=== PATIENT | female | born 1955 | race Caucasian/White ===

== ENCOUNTER 2022-07-03 11:28 | Outpatient (REF) | payer MEDICARE, SELFPAY ==
--- NOTE | ~2022-07-03 | XR_ITS ---
EXAMINATION: XR THORACIC SPINE CLINICAL INFORMATION: Reason for Exam R07.9 - Chest pain, unspecified COMPARISON: None TECHNIQUE: 3 views of the thoracic spine FINDINGS: Vertebral body heights are maintained. Alignment is maintained. Moderate multilevel degenerative disc disease with loss of disc space height. Paravertebral soft tissues are unremarkable. XR/XR thoracic spine 2V IMPRESSION: Moderate multilevel degenerative disc disease with loss of disc space height.
[2022-07-03 14:02] LABS: MANUAL DIFF FLAG NO
[2022-07-03 14:11] LABS: Basophils Absolute Auto 0.1 X10*3/uL (0.0-0.2); Basophils Percent Auto 0.8 % (0-2); Eosinophils Absolute Auto 0.3 X10*3/uL (0.0-0.4); Eosinophils Percent Auto 3.3 % (0-4); Hematocrit 42.5 % (37.0-47.0); Imm Gran Abs Auto 0.07 X10*3/uL (0.00-0.03); Imm Gran Pct Auto 0.8 % (0.0-0.4); Lymphocytes Absolute Auto 2.3 X10*3/uL (1.2-4.9); Lymphocytes Percent Auto 26.2 % (20-40); Mean Corpuscular HGB Conc 32.9 g/dl (31.0-35.0); Mean Corpuscular Hemoglobin 30.8 pg (27.0-33.0); Mean Corpuscular Volume 93.6 fL (80.0-98.0); Mean Platelet Volume 10.7 fL (9.4-12.3); Monocytes Absolute Auto 0.7 X10*3/uL (0.1-1.2); Monocytes Percent Auto 7.5 % (2-11); Neutrophils Absolute Auto 5.4 x10*3/uL (2.0-8.3); Neutrophils Percent Auto 61.4 % (45-73); Platelet Count 321 X10*3/uL (160-400); Red Blood Count 4.54 X10*6/uL (4.20-5.50); Red Cell Distribution Width 12.4 % (11.0-16.0); White Blood Count 8.8 X10*3/uL (4.8-10.8)
[2022-07-03 14:21] LABS: Estimated Average Glucose 174 mg/dL; Hemoglobin A1c % 7.7 %
[2022-07-03 15:34] LABS: Alanine Aminotransferase 22 U/L (0-31); Albumin Level 4.4 g/dL (3.5-5.0); Alkaline Phosphatase 69 U/L (39-117); Anion Gap 14 (12-20); Aspartate Amino Transferase 19 U/L (5-31); Bilirubin Total 0.7 mg/dL (0.0-1.0); Blood Urea Nitrogen 11 mg/dL (9-16); Calcium 9.4 mg/dL (8.4-10.2); Carbon Dioxide 29 mmol/L (22-29); Chloride 100 mmol/L (96-108); Cholesterol 279 mg/dL; Estimated Glomerular Filt Rate > 60; Glucose Fasting 153 mg/dL (60-99); HDL Cholesterol 71 mg/dL; LDL Cholesterol Calculated 188 mg/dl; Sodium 138 mmol/L (135-145); Total Protein 7.4 g/dL (6.5-8.0); Triglycerides 101 mg/dL
[2022-07-03 15:39] LABS: TSH reflex Free T4 2.75 uIU/mL (0.32-4.0)
== END 2022-07-03 11:29 | disposition home or self-care (01) ==
LOC: HO.HMGCX 11:28
PROVIDERS: PCP Internal Medicine; Visit Provider Internal Medicine
DX: Z00.01 Encounter for general adult medical examination with abnormal findings (principal); R03.0 Elevated blood-pressure reading, without diagnosis of hypertension; R73.01 Impaired fasting glucose; E78.9 Disorder of lipoprotein metabolism, unspecified; R07.9 Chest pain, unspecified; E66.9 Obesity, unspecified
CPT/HCPCS: 36415; 72070; 80053; 80061; 83036; 84443; 85025

== ENCOUNTER 2022-10-14 06:19 | Outpatient (REF) | payer MEDICARE, SELFPAY ==
[2022-10-14 12:20] LABS: Alanine Aminotransferase 14 U/L (0-31); Albumin Level 4.2 g/dL (3.5-5.0); Alkaline Phosphatase 58 U/L (39-117); Anion Gap 15 (12-20); Aspartate Amino Transferase 16 U/L (5-31); Bilirubin Total 0.6 mg/dL (0.0-1.0); Blood Urea Nitrogen 12 mg/dL (9-16); Calcium 9.6 mg/dL (8.4-10.2); Carbon Dioxide 26 mmol/L (22-29); Chloride 103 mmol/L (96-108); Cholesterol 262 mg/dL; Estimated Glomerular Filt Rate > 60; Glucose Fasting 140 mg/dL (60-99); HDL Cholesterol 63 mg/dL; LDL Cholesterol Calculated 176 mg/dl; Potassium 4.3 mmol/L (3.3-5.1); Sodium 140 mmol/L (135-145); Total Protein 7.4 g/dL (6.5-8.0); Triglycerides 116 mg/dL
[2022-10-14 16:17] LABS: Estimated Average Glucose 131 mg/dL; Hemoglobin A1c % 6.2 %
== END 2022-10-14 06:20 | disposition home or self-care (01) ==
LOC: HO.HMGCLDS 06:19
PROVIDERS: PCP Internal Medicine; Visit Provider Internal Medicine
DX: R07.9 Chest pain, unspecified (principal); E11.9 Type 2 diabetes mellitus without complications; E66.09 Other obesity due to excess calories; E78.9 Disorder of lipoprotein metabolism, unspecified; R03.0 Elevated blood-pressure reading, without diagnosis of hypertension
CPT/HCPCS: 36415; 80053; 80061; 83036

== ENCOUNTER 2022-10-18 07:55 | Outpatient (AMB) | payer MEDICARE, SELFPAY ==
--- NOTE | 2022-10-18 07:57 | MHC.PC.OV ---
Vital Signs 10/18/22 07:58 Height 5 ft 2 in Weight 176 lb 6 oz BMI 32.3 BP 130/80 Blood Pressure Location Rt brachial Position Sitting Pulse 78 Pulse Source Pulse Oximeter Pulse Oximetry (%) 98 Oxygen Delivery Method Room Air Intake Visit Reasons: 3 month Follow up Allergies No Known Allergies Allergy (Verified 10/18/22 07:59) Medication List - Last Reconciled 10/18/22 by Radha Aceves MD No Known Home Meds Tobacco use date assessed: 07/05/22 HPI 3 month Follow up HPI Details Patient is 67-year-old female came in today for a follow-up appointment Patient is diabetic she has modified her diet her hemoglobin A1c has reduced to 6.2 Her blood pressure is 1 30 x 80 today And LDL has improved slightly to 176 Patient is reluctant to take any medications she will continue to exercise and continue modified diet. Follow-up 4 months labs to be done before visit. [facility] Medical History Impaired fasting blood sugar Lipid disorder Pre-hypertension Surgical History History of tonsillectomy Hx of lumpectomy (01/2012) Hx of tubal ligation (1982) Social History Housing: House Patient Tobacco Use Status: Former Tobacco user e-Cigarette/Vaping Use: Never Used Current occupational status: employed Cognitive needs: No Hearing needs: No Vision needs: Yes Questionnaire Thrive Questionnaire Date Thrive assessed: 07/03/22 CHAYO-7 AMB Questionnaire CHAYO-7 Date CHAYO - 7 assessed: 07/03/22 Source: Developed by Drs. Rogelio Orellana, Dulce Christie, Juan Mccullough and colleagues, with an educational shaji from [employer]. Review of Systems Const Denies chills and Denies fever(s) ENT Denies epistaxis and Denies nasal discharge Card Denies chest pain Resp Denies chest congestion, Denies cough and Denies hemoptysis GI Denies diarrhea and Denies nausea Skin/Breast Denies rash Neuro Reports no additional complaints Psych Reports no additional complaints Endo Reports no additional complaints Physical exam (Primary Care) Vital Signs: Last Vital Signs Pulse 78 10/18/22 07:58 BP 130/80 10/18/22 07:58 Pulse Ox 98 10/18/22 07:58 Oxygen Delivery Method Room Air 10/18/22 07:58 BMI result Body Mass Index 32.3 Tobacco/Smoking Status: Tobacco use Status Tobacco use date assessed 07/05/22 10/18/22 08:02 Patient Tobacco Use Status Former Tobacco user 10/18/22 08:02 e-Cigarette/Vaping Use Never Used 10/18/22 08:02 Thrive Assessment: Date of Thrive Assessment Date Thrive assessed 07/03/22 10/18/22 08:02 Const General: cooperative, comfortable and no acute distress Orientation/consciousness: patient oriented x3 HENMT Head: Yes normocephalic Eyes General: appearance normal, both eyes and all related structures Neck Neck: Yes supple Resp Effort & Inspection: normal respiratory effort, no cough and no stridor Cardio Rhythm: regular rhythm Heart sounds: S1 normal heart sound present and S2 normal heart sound present Skin General skin exam: turgor normal Neuro General: patient oriented x3, tone normal and moves all extremities Extrem Right lower extremity: no edema Left lower extremity: no edema Assessment and Plan Assessment & Plan (1) Type 2 diabetes mellitus: Code(s): E11.9 - Type 2 diabetes mellitus without complications (2) Lipid disorder: Code(s): E78.9 - Disorder of lipoprotein metabolism, unspecified (3) Pre-hypertension: Code(s): R03.0 - Elevated blood-pressure reading, without diagnosis of hypertension (4) Obesity due to excess calories: Code(s): E66.09 - Other obesity due to excess calories Plan Patient is 67-year-old female came in today for a follow-up appointment Patient is diabetic she has modified her diet her hemoglobin A1c has reduced to 6.2 Her blood pressure is 1 30 x 80 today And LDL has improved slightly to 176 Patient is reluctant to take any medications she will continue to exercise and continue modified diet. Follow-up 4 months labs to be done before visit. Orders: Orders Comprehensive [place]. Panel Fast 3 Months E11.9 - Type 2 diabetes mellitus without complications, E66.09 - Other obesity due to excess calories, E78.9 - Disorder of lipoprotein metabolism, unspecified, R03.0 - Elevated blood-pressure reading, without diagnosis of hypertension Hemoglobin A1c 3 Months E11.9 - Type 2 diabetes mellitus without complications, E66.09 - Other obesity due to excess calories, E78.9 - Disorder of lipoprotein metabolism, unspecified, R03.0 - Elevated blood-pressure reading, without diagnosis of hypertension Lipid Panel 3 Months E11.9 - Type 2 diabetes mellitus without complications, E66.09 - Other obesity due to excess calories, E78.9 - Disorder of lipoprotein metabolism, unspecified, R03.0 - Elevated blood-pressure reading, without diagnosis of hypertension Coding Level of Care Code Est Pt Level 3 (67502) Diagnoses Type 2 diabetes mellitus E11.9 Lipid disorder E78.9 Pre-hypertension R03.0 Obesity due to excess calories E66.09
[2022-10-18 07:58] VITALS: BP 130/80; PULSE 78; O2SAT 98; BMI 32.3
== END 2022-10-18 08:12 | disposition home or self-care (01) ==
PROVIDERS: Visit Provider Internal Medicine
DX: E11.9 Type 2 diabetes mellitus without complications (principal); E78.9 Disorder of lipoprotein metabolism, unspecified; R03.0 Elevated blood-pressure reading, without diagnosis of hypertension; Z68.32 Body mass index [BMI] 32.0-32.9, adult; E66.09 Other obesity due to excess calories
CPT/HCPCS: 99213

== ENCOUNTER 2023-02-14 06:05 | Outpatient (REF) | payer MEDICARE, SELFPAY ==
[2023-02-14 11:47] LABS: Estimated Average Glucose 134 mg/dL; Hemoglobin A1c % 6.3 % (<6.0)
[2023-02-14 12:08] LABS: Alanine Aminotransferase 15 U/L (0-31); Albumin Level 4.1 g/dL (3.5-5.0); Alkaline Phosphatase 53 U/L (39-117); Anion Gap 10 (12-20); Aspartate Amino Transferase 19 U/L (5-31); Bilirubin Total 0.5 mg/dL (0.0-1.0); Blood Urea Nitrogen 14 mg/dL (9-16); Calcium 9.3 mg/dL (8.4-10.2); Carbon Dioxide 30 mmol/L (22-29); Chloride 103 mmol/L (96-108); Cholesterol 244 mg/dL (<200); Estimated Glomerular Filt Rate > 60; Glucose Fasting 139 mg/dL (60-99); HDL Cholesterol 66 mg/dL (>40); LDL Cholesterol Calculated 165 mg/dL (<100); Potassium 5.2 mmol/L (3.3-5.1); Sodium 138 mmol/L (135-145); Total Protein 7.2 g/dL (6.5-8.0); Triglycerides 68 mg/dL (<150)
== END 2023-02-14 06:06 | disposition home or self-care (01) ==
LOC: HO.HMGCLDS 06:05
PROVIDERS: PCP Internal Medicine; Visit Provider Internal Medicine
DX: E11.9 Type 2 diabetes mellitus without complications (principal); E78.9 Disorder of lipoprotein metabolism, unspecified; R03.0 Elevated blood-pressure reading, without diagnosis of hypertension; E66.09 Other obesity due to excess calories
CPT/HCPCS: 36415; 80053; 80061; 83036

== ENCOUNTER 2023-02-19 08:35 | Outpatient (AMB) | payer MEDICARE, SELFPAY ==
[2023-02-19 08:37] VITALS: BP 136/82; PULSE 72; O2SAT 96; BMI 30.4
--- NOTE | 2023-02-19 08:37 | A.OFFPC_ITS ---
Vital Signs 02/19/23 08:37 Height 5 ft 2 in Weight 166 lb 6 oz BMI 30.4 BP 136/82 Blood Pressure Location Lt brachial Position Sitting Pulse 72 Pulse Source Pulse Oximeter Pulse Oximetry (%) 96 Oxygen Delivery Method Room Air Intake Visit Reasons: 4 month Follow up Allergies No Known Allergies Allergy (Verified 02/19/23 08:41) Medication List - Last Reconciled 02/19/23 by Radha Aceves MD No Known Home Meds Tobacco use date assessed: 02/19/23 Fall risk assessment: No Falls in past year Last assessed Fall Risk: 02/19/23 Dental Screening Dental Screen Date: 02/19/23 Did you have a dental visit in the last 12 months?: No Did you have a dental problem in the last 6 months where you did not have access to dental care?: No Was dental information given to patient?: No HPI 4 month Follow up HPI Details Patient is 67-year-old female came in today for her follow-up Patient was last seen October of this year She is taking no medication and do not want to take any medication Lipid disorder: Her LDL is 165 labs were done recently this month, it has improved from before Patient is working out every morning she is feeling good have lot of energy Offer no new complaints Prediabetes: Hemoglobin A1c is 6.3 which has worsened slightly from before Her potassium is 5.2 I would recommend to push lots of fluids and avoid potassium rich food for few days. Patient will return in June for physical exam, she will do labs before visit. BMI is still elevated at 30.4 patient is working on that. [facility] Medical History Lipid disorder Impaired fasting blood sugar Pre-hypertension Surgical History History of tonsillectomy Hx of tubal ligation (1982) Hx of lumpectomy (01/2012) Social History Housing: House Patient Tobacco Use Status: Former Tobacco user e-Cigarette/Vaping Use: Never Used Current occupational status: employed Cognitive needs: No Hearing needs: No Vision needs: Yes Questionnaire PHQ-9 Over the last 2 weeks, how often have you been bothered by any of the following problems? 1. Little interest or pleasure in doing things: not at all 2. Feeling down, depressed, or hopeless: not at all 3. Trouble falling or staying asleep, or sleeping too much: not at all 4. Feeling tired or having little energy: not at all 5. Poor appetite or overeating: not at all 6. Feeling bad about yourself - or that you are a failure or have let yourself or your family down: not at all 7. Trouble concentrating on things, such as reading the newspaper or watching television: not at all 8. Moving or speaking so slowly that other people could have noticed. Or the opposite - being so fidgety or restless that you have been moving around a lot more than usual: not at all 9. Thoughts that you would be better off or of hurting yourself in some w ay: not at all Total score: 0 Depression Screening Interpretation: Negative Depression Screening Done: Yes 68268 - PHQ-9 Billing: Yes Source: Developed by Drs. Rogelio Orellana, Juan Franks and colleagues, with an educational shaji from [employer]. Thrive Questionnaire Date Thrive assessed: 07/03/22 AUDIT C Alcohol Use Questionnaire (AUDIT-C) 1. How often do you have a drink containing alcohol?: Monthly or less 2. How many drinks containing alcohol do you have on a typical day when you are drinking?: 1 or 2 3. How often do you have six or more drinks on one occasion?: Never Total Score: 1 Score Reviewed/Action Taken: Yes CHAYO-7 AMB Questionnaire CHAYO-7 Date CHAYO - 7 assessed: 07/03/22 Source: Developed by Drs. Rogelio Orellana, Juan Franks and colleagues, with an educational shaji from [employer]. Review of Systems Const Denies chills and Denies fever(s) ENT Denies epistaxis and Denies nasal discharge Card Denies chest pain Resp Denies chest congestion, Denies cough and Denies hemoptysis GI Denies diarrhea and Denies nausea Skin/Breast Denies rash Neuro Reports no additional complaints Psych Reports no additional complaints Endo Reports no additional complaints Physical exam (Primary Care) Vital Signs: Last Vital Signs Pulse 72 02/19/23 08:37 BP 136/82 02/19/23 08:37 Pulse Ox 96 02/19/23 08:37 Oxygen Delivery Method Room Air 02/19/23 08:37 BMI result Body Mass Index 30.4 Tobacco/Smoking Status: Tobacco use Status Tobacco use date assessed 02/19/23 02/19/23 08:42 Patient Tobacco Use Status Former Tobacco user 02/19/23 08:39 e-Cigarette/Vaping Use Never Used 02/19/23 08:39 PHQ-9: PHQ-9 Score PHQ-9: Total score 0 02/19/23 08:52 Depression Screening Interpretation: Negative Thrive Assessment: Date of Thrive Assessment Date Thrive assessed 07/03/22 02/19/23 08:39 Const General: cooperative, comfortable and no acute distress Orientation/consciousness: patient oriented x3 HENMT Head: Yes normocephalic Eyes General: appearance normal, both eyes and all related structures Neck Neck: Yes supple Resp Effort & Inspection: normal respiratory effort, no cough and no stridor Cardio Rhythm: regular rhythm Heart sounds: S1 normal heart sound present and S2 normal heart sound present Skin General skin exam: turgor normal Neuro General: patient oriented x3, tone normal and moves all extremities Extrem Right lower extremity: no edema Left lower extremity: no edema Assessment and Plan Assessment & Plan (1) Diabetes mellitus type 2 in obese: Code(s): E11.69 - Type 2 diabetes mellitus with other specified complication; E66.9 - Obesity, unspecified (2) Lipid disorder: Code(s): E78.9 - Disorder of lipoprotein metabolism, unspecified (3) Hyperkalemia: Code(s): E87.5 - Hyperkalemia (4) Obesity due to excess calories: Code(s): E66.09 - Other obesity due to excess calories Qualifiers: Obesity classification: adult class 1 (BMI 30 - 34.9) Serious obesity comorbidity presence: with serious comorbidity Body mass index: BMI 30.0-30.9 Qualified Code(s): E66.09 - Other obesity due to excess calories; Z68.30 - Body mass index [BMI] 30.0-30.9, adult Plan Patient is 67-year-old female came in today for her follow-up Patient was last seen October of this year She is taking no medication and do not want to take any medication Lipid disorder: Her LDL is 165 labs were done recently this month, it has improved from before Patient is working out every morning she is feeling good have lot of energy Offer no new complaints Prediabetes: Hemoglobin A1c is 6.3 which has worsened slightly from before Her potassium is 5.2 I would recommend to push lots of fluids and avoid potassium rich food for few days. Patient will return in June for physical exam, she will do labs before visit. BMI is still elevated at 30.4 patient is working on that. Orders: Orders Hemoglobin A1c 3 Months - Type 2 diabetes mellitus with other specified complication, E66.09 - Other obesity due to excess calories, E66.9 - Obesity, unspecified, E78.9 - Disorder of lipoprotein metabolism, unspecified, E87.5 - Hyperkalemia Lipid Panel 3 Months . - Type 2 diabetes mellitus with other specified complication, E66.09 - Other obesity due to excess calories, E66.9 - Obesity, unspecified, E78.9 - Disorder of lipoprotein metabolism, unspecified, E87.5 - Hyperkalemia Comprehensive [place]. Panel Fast 3 Months . - Type 2 diabetes mellitus with other specified complication, E66.09 - Other obesity due to excess calories, E66.9 - Obesity, unspecified, E78.9 - Disorder of lipoprotein metabolism, unspecified, E87.5 - Hyperkalemia Coding Level of Care Code Est Pt Level 4 (34231) Diagnoses Diabetes mellitus type 2 in obese .69; E66.9 Lipid disorder E78.9 Hyperkalemia E87.5 Class 1 obesity due to excess calories with serious comorbidity and body mass index (BMI) of 30.0 to 30.9 in adult E66.09; Z68.30 Obesity classification: adult class 1 (BMI 30 - 34.9) Serious obesity comorbidity presence: with serious comorbidity Body mass index: BMI 30.0-30.9
== END 2023-02-19 08:59 | disposition home or self-care (01) ==
PROVIDERS: PCP Internal Medicine; Visit Provider Internal Medicine
DX: E11.69 Type 2 diabetes mellitus with other specified complication (principal); E66.9 Obesity, unspecified; E78.9 Disorder of lipoprotein metabolism, unspecified; E87.5 Hyperkalemia; E66.09 Other obesity due to excess calories; Z68.30 Body mass index [BMI] 30.0-30.9, adult
CPT/HCPCS: 99214

== ENCOUNTER 2023-05-27 12:41 | Outpatient (AMB) | payer MEDICARE, SELFPAY ==
[2023-05-27 12:43] VITALS: BP 124/78; PULSE 72; O2SAT 99; BMI 29.1
--- NOTE | 2023-05-27 12:43 | MHC.PC.OV ---
Vital Signs 05/27/23 12:43 Height 5 ft 2 in Weight 159 lb BMI 29.1 BP 124/78 Blood Pressure Location Lt brachial Position Sitting Pulse 72 Pulse Source Pulse Oximeter Pulse Oximetry (%) 99 Oxygen Delivery Method Room Air Intake Visit Reasons: Dizzy spells Intake Note: Pt is here today for sick visit. Pt c/o dizzy spells that happened a month ago and 2 weeks ago again. Allergies No Known Allergies Allergy (Verified 05/27/23 12:46) Medication List - Last Reconciled 05/27/23 by Radha Aceves MD No Known Home Meds Tobacco use date assessed: 05/27/23 Fall risk assessment: No Falls in past year Last assessed Fall Risk: 05/27/23 Dental Screening Dental Screen Date: 05/27/23 Did you have a dental visit in the last 12 months?: No Did you have a dental problem in the last 6 months where you did not have access to dental care?: Yes Was dental information given to patient?: Yes HPI Dizzy spells HPI Details Patient is 67-year-old female came in today to be evaluated for dizziness Patient says that twice in 1 month she had dizzy spell Once she was working in the kitchen she was holding something she turned around and felt dizzy, she sat down for 15 minutes and then she was fine You were no neurological symptoms associated 2nd time 2 weeks ago she was working in a kitchen doing a lot of things moving quickly, and felt dizzy again Patient lay down for few minutes and then she was fine There was no nausea associated with it no headache no weakness in arms or legs no difficulty talking On examination no inflammation was noted in the ear right ear patient have a small papule which has been there for a while and is not getting bigger or painful Patient says that she has seen district representative for that in the past Her vertigo test is negative today There is no nystagmus However since it is a new symptom for the patient, she is extremely worried about it I am referring her to neurologist for further evaluation. Meanwhile patient is to get meclizine 25 mg [id number] and take that in the morning before going to work [facility] Medical History Lipid disorder Impaired fasting blood sugar Pre-hypertension Surgical History History of tonsillectomy Hx of tubal ligation (1982) Hx of lumpectomy (01/2012) Social History Housing: House Patient Tobacco Use Status: Former Tobacco user e-Cigarette/Vaping Use: Never Used Current occupational status: employed Cognitive needs: No Hearing needs: No Vision needs: Yes Questionnaire PHQ-9 Over the last 2 weeks, how often have you been bothered by any of the following problems? 1. Little interest or pleasure in doing things: not at all 2. Feeling down, depressed, or hopeless: not at all 3. Trouble falling or staying asleep, or sleeping too much: not at all 4. Feeling tired or having little energy: not at all 5. Poor appetite or overeating: not at all 6. Feeling bad about yourself - or that you are a failure or have let yourself or your family down: not at all 7. Trouble concentrating on things, such as reading the newspaper or watching television: not at all 8. Moving or speaking so slowly that other people could have noticed. Or the opposite - being so fidgety or restless that you have been moving around a lot more than usual: not at all 9. Thoughts that you would be better off or of hurting yourself in some way: not at all Total score: 0 Depression Screening Interpretation: Negative Depression Screening Done: Yes 22048 - PHQ-9 Billing: Yes Source: Developed by Drs. Rogelio Orellana, Dulce Christie, Juan Mccullough and colleagues, with an educational shaji from [employer]. Thrive Questionnaire Date Thrive assessed: 05/27/23 I am a: Patient What is your living situation today?: I have a steady place to live Within the past 12 months, did the food you bought not last and you didn't have the money to get more?: Never true Within the past 12 months, did you worry whether your food would run out before you got money to buy more?: Never true Do you have trouble paying for medicines?: No Do you have trouble getting transportation to medical appointments?: No Do you have trouble paying your heating and electricity bill?: No Do you have trouble taking care of your child, family member or friend?: No Do you have trouble with day-to-day activities such as bathing, preparing meals, shopping, managing finances, etc.?: No Are you currently unemployed and looking for a job?: No Are you interested in more education?: No Please select the resources that you would like help with: None Currently or been in a relationship where the following occur: no concerns reported THRIVE Score: 0 AUDIT C Alcohol Use Questionnaire (AUDIT-C) 1. How often do you have a drink containing alcohol?: Never 3. How often do you have six or more drinks on one occasion?: Never Total Score: 0 CHAYO-7 AMB Questionnaire CHAYO-7 Date CHAYO - 7 assessed: 05/27/23 Feeling nervous, anxious, or on edge: 0 = Not at all Not being able to stop or control worryin = Not at all Worrying too much about different things: 0 = Not at all Trouble relaxin = Not at all Being so restless that it is hard to sit still: 0 = Not at all Becoming easily annoyed or irritable: 0 = Not at all Feeling afraid as if something awful might happen: 0 = Not at all Total CHAYO-7 score (0-4 normal; 5-9 mild; 10-14 moderate; 15-21 severe): 0 Source: Developed by Drs. Rogelio Orellana, Dulce Christie, Juan Mccullough and colleagues, with an educational shaji from [employer]. CHAYO-7 Assessment Billing CHAYO-7 Assessment Tool: CHAYO-7 Assessment 24262 Review of Systems Const Denies chills and Denies fever(s) ENT Denies epistaxis and Denies nasal discharge Card Denies chest pain Resp Denies chest congestion, Denies cough and Denies hemoptysis GI Denies diarrhea and Denies nausea Skin/Breast Denies rash Neuro Reports no additional complaints Psych Reports no additional complaints Endo Reports no additional complaints Physical exam (Primary Care) Vital Signs: Last Vital Signs Pulse 72 05/27/23 12:43 BP 124/78 05/27/23 12:43 Pulse Ox 99 05/27/23 12:43 Oxygen Delivery Method Room Air 05/27/23 12:43 BMI result Body Mass Index 29.1 Tobacco/Smoking Status: Tobacco use Status Tobacco use date assessed 05/27/23 05/27/23 12:48 Patient Tobacco Use Status Former Tobacco user 05/27/23 12:48 e-Cigarette/Vaping Use Never Used 05/27/23 12:48 PHQ-9: PHQ-9 Score PHQ-9: Total score 0 05/27/23 12:48 Depression Screening Interpretation: Negative Thrive Assessment: Date of Thrive Assessment Date Thrive assessed 05/27/23 05/27/23 12:48 Currently or been in a relationship where the following occur: no concerns reported Const General: cooperative, comfortable and no acute distress Orientation/consciousness: patient oriented x3 HENWI Head: Yes normocephalic Eyes General: appearance normal, both eyes and all related structures Neck Neck: Yes supple Resp Effort & Inspection: normal respiratory effort, no cough and no stridor Cardio Rhythm: regular rhythm Heart sounds: S1 normal heart sound present and S2 normal heart sound present Skin General skin exam: turgor normal Neuro Other: Vertigo test negative General: patient oriented x3, tone normal and moves all extremities Extrem Right lower extremity: no edema Left lower extremity: no edema Assessment and Plan Assessment & Plan (1) Dizziness: Code(s): R42 - Dizziness and giddiness Plan Patient is 67-year-old female came in today to be evaluated for dizziness Patient says that twice in 1 month she had dizzy spell Once she was working in the kitchen she was holding something she turned around and felt dizzy, she sat down for 15 minutes and then she was fine You were no neurological symptoms associated 2nd time 2 weeks ago she was working in a kitchen doing a lot of things moving quickly, and felt dizzy again Patient lay down for few minutes and then she was fine There was no nausea associated with it no headache no weakness in arms or legs no difficulty talking On examination no inflammation was noted in the ear right ear patient have a small papule which has been there for a while and is not getting bigger or painful Patient says that she has seen district representative for that in the past Her vertigo test is negative today There is no nystagmus However since it is a new symptom for the patient, she is extremely worried about it I am referring her to neurologist for further evaluation. Meanwhile patient is to get meclizine 25 mg [id number] and take that in the morning before going to work Orders: Referrals Neurology Referral R42 - Dizziness and giddiness Coding Level of Care Code Est Pt Level 3 (75749) Diagnoses Dizziness R42 Additional Codes CHAYO-7 Assessment Billing - CHAYO-7 Assessment Tool: CHAYO-7 Assessment 60257 ([id number])
== END 2023-05-27 13:04 | disposition home or self-care (01) ==
LOC: HO.HMGC 12:42
PROVIDERS: PCP Internal Medicine; Visit Provider Internal Medicine
DX: R42 Dizziness and giddiness (principal)
CPT/HCPCS: 99213

== ENCOUNTER 2023-07-04 06:20 | Outpatient (REF) | payer MEDICARE, SELFPAY ==
[2023-07-04 11:08] LABS: Estimated Average Glucose 140 mg/dL; Hemoglobin A1c % 6.5 % (<6.0)
[2023-07-04 11:13] LABS: Alanine Aminotransferase 14 U/L (0-31); Alkaline Phosphatase 56 U/L (39-117); Anion Gap 10 (12-20); Aspartate Amino Transferase 16 U/L (5-31); Bilirubin Total 0.5 mg/dL (0.0-1.0); Blood Urea Nitrogen 17 mg/dL (9-16); Calcium 9.9 mg/dL (8.4-10.2); Carbon Dioxide 29 mmol/L (22-29); Chloride 105 mmol/L (96-108); Cholesterol 266 mg/dL (<200); Estimated Glomerular Filt Rate > 60; Glucose Fasting 154 mg/dL (60-99); HDL Cholesterol 72 mg/dL (>40); LDL Cholesterol Calculated 177 mg/dL (<100); Potassium 4.2 mmol/L (3.3-5.1); Sodium 140 mmol/L (135-145); Total Protein 7.1 g/dL (6.5-8.0); Triglycerides 86 mg/dL (<150)
== END 2023-07-04 06:21 | disposition home or self-care (01) ==
LOC: HO.HMGCLDS 06:20
PROVIDERS: PCP Internal Medicine; Visit Provider Internal Medicine
DX: E11.69 Type 2 diabetes mellitus with other specified complication (principal); E66.9 Obesity, unspecified; E78.9 Disorder of lipoprotein metabolism, unspecified; E87.5 Hyperkalemia; E66.09 Other obesity due to excess calories
CPT/HCPCS: 36415; 80053; 80061; 83036

== ENCOUNTER 2023-07-09 14:12 | Outpatient (AMB) | payer MEDICARE, SELFPAY ==
--- NOTE | 2023-07-09 14:12 | MHC.PC.OV ---
Vital Signs 07/09/23 14:13 Height 5 ft 2 in Weight 164 lb 6 oz BMI 30.1 BP 130/72 Blood Pressure Location Rt brachial Position Sitting Pulse 67 Pulse Source Pulse Oximeter Pulse Oximetry (%) 98 Oxygen Delivery Method Room Air Intake Visit Reasons: PE Allergies No Known Allergies Allergy (Verified 07/09/23 14:13) Medication List - Last Reconciled 07/09/23 by Radha Aceves MD No Known Home Meds Tobacco use date assessed: 07/09/23 Fall risk assessment: No Falls in past year Last assessed Fall Risk: 07/09/23 Dental Screening Dental Screen Date: 05/27/23 HPI PE HPI Details Patient have a history of breast cancer she is currently seeing a specialist for monitoring Mammogram is up-to-date. Colonoscopy will be in [address] Waldo LOPEZ she is seeing them every other year and is due to go this year Patient tells me that she has a history of scoliosis and sometimes she have a pain left side of her ribcage. 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 Vaccines through pharmacy Patient is prehypertensive, I would recommend no so to diet BMI is elevated however she was able to lose some weight, patient is exercising every morning Follow-up 4 months for hemoglobin A1c She does not want to take medication for high cholesterol, her LDL is 177 PFSH Medical History Lipid disorder Impaired fasting blood sugar Pre-hypertension Surgical History History of tonsillectomy Hx of tubal ligation (1982) Hx of lumpectomy (01/2012) Social History Housing: House Patient Tobacco Use Status: Former Tobacco user e-Cigarette/Vaping Use: Never Used Current occupational status: employed Cognitive needs: No Hearing needs: No Vision needs: Yes Questionnaire PHQ-9 Over the last 2 weeks, how often have you been bothered by any of the following problems? 1. Little interest or pleasure in doing things: not at all 2. Feeling down, depressed, or hopeless: not at all 3. Trouble falling or staying asleep, or sleeping too much: not at all 4. Feeling tired or having little energy: not at all 5. Poor appetite or overeating: not at all 6. Feeling bad about yourself - or that you are a failure or have let yourself or your family down: not at all 7. Trouble concentrating on things, such as reading the newspaper or watching television: not at all 8. Moving or speaking so slowly that other people could have noticed. Or the opposite - being so fidgety or restless that you have been moving around a lot more than usual: not at all 9. Thoughts that you would be better off or of hurting yourself in some way: not at all Total score: 0 Depression Screening Interpretation: Negative Depression Screening Done: Yes 90743 - PHQ-9 Billing: Yes Source: Developed by Drs. Rogelio Orellana, Dulce Christie, Juan Mccullough and colleagues, with an educational shaji from [employer]. Thrive Questionnaire Date Thrive assessed: 07/09/23 I am a: Patient What is your living situation today?: I have a steady place to live Within the past 12 months, did the food you bought not last and you didn't have the money to get more?: Never true Within the past 12 months, did you worry whether your food would run out before you got money to buy more?: Never true Do you have trouble paying for medicines?: No Do you have trouble getting transportation to medical appointments?: No Do you have trouble paying your heating and electricity bill?: No Do you have trouble taking care of your child, family member or friend?: No Do you have trouble with day-to-day activities such as bathing, preparing meals, shopping, managing finances, etc.?: No Are you currently unemployed and looking for a job?: No Are you interested in more education?: No Please select the resources that you would like help with: None Currently or been in a relationship where the following occur: no concerns reported THRIVE Score: 0 CHAYO-7 AMB Questionnaire CHAYO-7 Date CHAYO - 7 assessed: 07/09/23 Feeling nervous, anxious, or on edge: 0 = Not at all Not being able to stop or control worryin = Not at all Worrying too much about different things: 0 = Not at all Trouble relaxin = Not at all Being so restless that it is hard to sit still: 0 = Not at all Becoming easily annoyed or irritable: 0 = Not at all Feeling afraid as if something awful might happen: 0 = Not at all Total CHAYO-7 score (0-4 normal; 5-9 mild; 10-14 moderate; 15-21 severe): 0 Source: Developed by Drs. Rogelio Orellana, Dulce Christie, Juan Mccullough and colleagues, with an educational shaji from [employer]. CHAYO-7 Assessment Billing CHAYO-7 Assessment Tool: CHAYO-7 Assessment 81627 Review of Systems Const Denies chills, Denies fever(s) and Denies headache(s) Eyes Denies blurry vision ENT Denies headache(s), Denies nasal discharge, Denies nasal obstruction, Denies odynophagia and Denies sinus pain Card Denies chest pain at rest and Denies chest pain with activity Resp Denies cough and Denies hemoptysis GI Denies diarrhea, Denies odynophagia, Denies vomiting and Denies hematemesis Reports as per HPI Musc Denies abnormal gait Skin/Breast Reports as per HPI Neuro Denies Neuro-related abnormal movements, Denies Abnormal speech present, Denies abnormal gait, Denies headache(s) and Denies Sensory deficit (Neuro) Psych Denies mood swings and Denies paranoia Endo Reports as per HPI Vipul/Lymph Reports as per HPI Aller/Immun Reports as per HPI Physical exam (Primary Care) Vital Signs: Last Vital Signs Pulse 67 07/09/23 14:13 BP 130/72 07/09/23 14:13 Pulse Ox 98 07/09/23 14:13 Oxygen Delivery Method Room Air 07/09/23 14:13 BMI result Body Mass Index 30.1 Tobacco/Smoking Status: Tobacco use Status Tobacco use date assessed 07/09/23 07/09/23 14:15 Patient Tobacco Use Status Former Tobacco user 07/09/23 14:15 e-Cigarette/Vaping Use Never Used 07/09/23 14:15 PHQ-9: PHQ-9 Score PHQ-9: Total score 0 07/09/23 14:39 Depression Screening Interpretation: Negative Thrive Assessment: Date of Thrive Assessment Date Thrive assessed 07/09/23 07/09/23 14:40 Currently or been in a relationship where the following occur: no concerns reported Const General: cooperative, comfortable and no acute distress Orientation/consciousness: patient oriented x3 HENMT Head: Yes normocephalic and Yes atraumatic Eyes General: appearance normal, both eyes and all related structures Pupils: Equal, round and reactive pupils present EOM: EOMs intact bilaterally Neck Neck: Yes supple and No lymphadenopathy Thyroid: Thyroid normal Lymphatic: no lymphadenopathy noted Resp Effort & Inspection: normal respiratory effort and able to speak in complete sentences Auscultation: clear to auscultation bilaterally Cardio Heart sounds: S1 normal heart sound present and S2 normal heart sound present GI Palpation (GI): Soft to palpation and nontender Auscultation: normal bowel sounds General: Yes no CVA tenderness Back/Spine/Pelvis Back: no CVA tenderness Skin General skin exam: elasticity normal and turgor normal Neuro General: patient oriented x3 and gait normal Cranial nerves: Yes Equal, round and reactive pupils present Speech: No Abnormal speech present Sensory Exam: No Sensory deficit (Neuro) Coordination: tandem gait normal and Romberg test negative Extrem General: Yes normal exam except as noted and No edema Assessment and Plan Assessment & Plan (1) Encounter for general adult medical examination with abnormal findings: Code(s): Z00.01 - Encounter for general adult medical examination with abnormal findings (2) Lipid disorder: Code(s): E78.9 - Disorder of lipoprotein metabolism, unspecified (3) New onset type 2 diabetes mellitus: Code(s): E11.9 - Type 2 diabetes mellitus without complications (4) Obesity due to excess calories: Code(s): E66.09 - Other obesity due to excess calories Qualifiers: Body mass index: BMI 30.0-30.9 Obesity classification: adult class 1 (BMI 30 - 34.9) Serious obesity comorbidity presence: with serious comorbidity Qualified Code(s): E66.09 - Other obesity due to excess calories; Z68.30 - Body mass index [BMI] 30.0-30.9, adult Plan Patient have a history of breast cancer she is currently seeing a specialist for monitoring Mammogram is up-to-date. Colonoscopy will be in [address] Waldo LOPEZ she is seeing them every other year and is due to go this year Patient tells me that she has a history of scoliosis and sometimes she have a pain left side of her ribcage. 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 Vaccines through pharmacy Patient is prehypertensive, I would recommend no so to diet BMI is elevated however she was able to lose some weight, patient is exercising every morning Follow-up 4 months for hemoglobin A1c She does not want to take medication for high cholesterol, her LDL is 177 Coding Level of Care Code Est Pt Prev Care >65y(16534) Diagnoses Encounter for general adult medical examination with abnormal findings Z00.01 Lipid disorder E78.9 New onset type 2 diabetes mellitus E11.9 Class 1 obesity due to excess calories with serious comorbidity and body mass index (BMI) of 30.0 to 30.9 in adult E66.09; Z68.30 Body mass index: BMI 30.0-30.9 Obesity classification: adult class 1 (BMI 30 - 34.9) Serious obesity comorbidity presence: with serious comorbidity Additional Codes CHAYO-7 Assessment Billing - CHAYO-7 Assessment Tool: CHAYO-7 Assessment [id number] ([id number])
[2023-07-09 14:13] VITALS: BP 130/72; PULSE 67; O2SAT 98; BMI 30.1
== END 2023-07-09 14:40 | disposition home or self-care (01) ==
PROVIDERS: Visit Provider Internal Medicine
DX: Z00.00 Encounter for general adult medical examination without abnormal findings (principal); E11.9 Type 2 diabetes mellitus without complications; E66.09 Other obesity due to excess calories; Z68.30 Body mass index [BMI] 30.0-30.9, adult; E78.9 Disorder of lipoprotein metabolism, unspecified
CPT/HCPCS: 99397

== ENCOUNTER 2023-10-16 09:15 | Outpatient (REF) | payer MEDICARE, SELFPAY ==
--- NOTE | ~2023-10-16 | MR_ITS ---
EXAMINATION: MR BRAIN WITHOUT AND WITH CONTRAST CLINICAL INFORMATION: Partial seizure disorder, headache COMPARISON: None TECHNIQUE: Multiplanar multisequence MR imaging of the brain was obtained without and following the administration of 7.5 mL Gadavist intravenous contrast. FINDINGS: There is no acute infarct on diffusion-weighted imaging. There is no intracranial hemorrhage on iron-sensitive imaging. No extra-axial collection or mass effect/herniation. Scattered periventricular and deep white matter T2 FLAIR hyperintensities consistent with mild underlying microangiopathy. The hippocampi are symmetric in size, contour, and signal intensity, demonstrating no convincing imaging evidence of mesial temporal sclerosis. The temporal horns appear symmetric. No hydrocephalus. The ventricles are normal in morphology and size. No abnormal parenchymal or extra-axial enhancement. The major flow voids at the skull base are preserved. The midline structures are normal. The cerebellar tonsils are normally positioned. The craniocervical junction is normal. Marrow signal is within normal limits. The visualized soft tissues are without significant abnormality. No signal abnormality within the paranasal sinuses or within the mastoid air cells. Small left petrous apex fluid. MR/MR head/brain wo/w con IMPRESSION: Mild chronic white matter microangiopathy. Otherwise unremarkable contrast-enhanced MRI of the brain. Electronically signed by: Keenan Bhagat MD 11/12/2023 06:57 PM EDT
[2023-10-16] MEDS: gadobutroL 7.5 ML VIAL IVPUSH (11:16)
== END 2023-10-16 09:16 | disposition home or self-care (01) ==
LOC: HO.MRI 09:15
PROVIDERS: PCP Internal Medicine; Visit Provider Psychiatry & Neurology Neurology
DX: G40.109 Localization-related (focal) (partial) symptomatic epilepsy and epileptic syndromes with simple partial seizures, not intractable, without status epilepticus (principal)
CPT/HCPCS: 70553; A9585

== ENCOUNTER 2023-11-25 13:13 | Outpatient (AMB) | payer MEDICARE, SELFPAY ==
[2023-11-25 13:16] VITALS: BP 162/100; PULSE 57; O2SAT 100; BMI 30.7
--- NOTE | 2023-11-25 13:16 | A.OFFPC_ITS ---
Vital Signs 11/25/23 13:16 Height 5 ft 2 in Weight 168 lb BMI 30.7 BP 162/100 H Blood Pressure Location Rt brachial Position Sitting Pulse 57 Pulse Source Pulse Oximeter Pulse Oximetry (%) 100 Oxygen Delivery Method Room Air Intake Visit Reasons: 4 month follow up Allergies No Known Allergies Allergy (Verified 11/25/23 13:16) Medication List - Last Reconciled 11/25/23 by Radha Aceves MD No Known Home Meds Tobacco use date assessed: 11/25/23 Fall risk assessment: No Falls in past year Last assessed Fall Risk: 11/25/23 Dental Screening Dental Screen Date: 11/25/23 Did you have a dental visit in the last 12 months?: Yes Did you have a dental problem in the last 6 months where you did not have access to dental care?: No Was dental information given to patient?: Patient has dentist HPI 4 month follow up HPI Details Patient came in today for her regular follow-up She is diabetic and is due for hemoglobin A1c Last A1c was 6.5 Her blood pressure is elevated today we checked it twice with 10 minute gap in between and it is still 160 x 90 She has a blood pressure monitor at home she was start monitoring blood pressure and will bring the monitor next week to see nurse navigator Meanwhile I have sent losartan 25 mg patient is to start 1 tablet a day Also complaining of feeling bloated and weight gain I have ordered labs for the patient she will have it done today. Patient have elevated lipids but she does not want to take medication for that Return in 4 months or earlier if needed [facility] Medical History Lipid disorder Impaired fasting blood sugar Pre-hypertension Surgical History History of tonsillectomy Hx of tubal ligation (1982) Hx of lumpectomy (01/2012) Social History Housing: House Patient Tobacco Use Status: Former Tobacco user e-Cigarette/Vaping Use: Never Used Current occupational status: employed Cognitive needs: No Hearing needs: No Vision needs: Yes Questionnaire Thrive Questionnaire Date Thrive assessed: 07/09/23 AUDIT C Alcohol Use Questionnaire (AUDIT-C) 1. How often do you have a drink containing alcohol?: Never 3. How often do you have six or more drinks on one occasion?: Never Total Score: 0 Score Reviewed/Action Taken: Yes CHAYO-7 AMB Questionnaire CHAYO-7 Date CHAYO - 7 assessed: 07/09/23 Source: Developed by Drs. Rogelio Orellana, Dulce Christie, Juan Mccullough and colleagues, with an educational shaji from [employer]. Review of Systems Const Denies chills and Denies fever(s) ENT Denies epistaxis and Denies nasal discharge Card Denies chest pain Resp Denies chest congestion, Denies cough and Denies hemoptysis GI Denies diarrhea and Denies nausea Skin/Breast Denies rash Neuro Reports no additional complaints Psych Reports no additional complaints Endo Reports no additional complaints Physical exam (Primary Care) Vital Signs: Last Vital Signs Pulse 57 11/25/23 13:16 BP 162/100 H 11/25/23 13:16 Pulse Ox 100 11/25/23 13:16 Oxygen Delivery Method Room Air 11/25/23 13:16 BMI result Body Mass Index 30.7 Tobacco/Smoking Status: Tobacco use Status Tobacco use date assessed 11/25/23 11/25/23 13:18 Patient Tobacco Use Status Former Tobacco user 11/25/23 13:18 e-Cigarette/Vaping Use Never Used 11/25/23 13:18 Thrive Assessment: Date of Thrive Assessment Date Thrive assessed 07/09/23 11/25/23 13:18 Const General: cooperative, comfortable and no acute distress Orientation/consciousness: patient oriented x3 HENMT Head: Yes normocephalic Eyes General: appearance normal, both eyes and all related structures Neck Neck: Yes supple Resp Effort & Inspection: normal respiratory effort, no cough and no stridor Cardio Rhythm: regular rhythm Heart sounds: S1 normal heart sound present and S2 normal heart sound present Skin General skin exam: turgor normal Neuro General: patient oriented x3, tone normal and moves all extremities Extrem Right lower extremity: no edema Left lower extremity: no edema Assessment and Plan Assessment & Plan (1) Type 2 diabetes mellitus: Code(s): E11.9 - Type 2 diabetes mellitus without complications Qualifiers: Diabetes mellitus complication status: with other specified complication Diabetes mellitus penitentiary insulin use: without penitentiary use Qualified Code(s): E11.69 - Type 2 diabetes mellitus with other specified complication (2) Elevated blood pressure reading: Code(s): R03.0 - Elevated blood-pressure reading, without diagnosis of hypertension (3) Lipid disorder: Code(s): E78.9 - Disorder of lipoprotein metabolism, unspecified Plan Patient came in today for her regular follow-up She is diabetic and is due for hemoglobin A1c Last A1c was 6.5 Her blood pressure is elevated today we checked it twice with 10 minute gap in between and it is still 160 x 90 She has a blood pressure monitor at home she was start monitoring blood pressure and will bring the monitor next week to see nurse navigator Meanwhile I have sent losartan 25 mg patient is to start 1 tablet a day Also complaining of feeling bloated and weight gain I have ordered labs for the patient she will have it done today. Patient have elevated lipids but she does not want to take medication for that Return in 4 months or earlier if needed Orders: Orders Hemoglobin A1c Today E11.9 - Type 2 diabetes mellitus without complications, R03.0 - Elevated blood-pressure reading, without diagnosis of hypertension, R73.01 - Impaired fasting glucose TSH reflex Free T4 Today E11.9 - Type 2 diabetes mellitus without complications, R03.0 - Elevated blood-pressure reading, without diagnosis of hypertension, R73.01 - Impaired fasting glucose Microalbumin, Random (w Creat) Today E11.9 - Type 2 diabetes mellitus without complications, R03.0 - Elevated blood-pressure reading, without diagnosis of hypertension, R73.01 - Impaired fasting glucose Complete Blood Count Auto Diff Today E11.9 - Type 2 diabetes mellitus without complications, R03.0 - Elevated blood-pressure reading, without diagnosis of hypertension, R73.01 - Impaired fasting glucose Comprehensive Met. Panel Today E11.9 - Type 2 diabetes mellitus without complications, R03.0 - Elevated blood-pressure reading, without diagnosis of hypertension, R73.01 - Impaired fasting glucose LDL Cholesterol Direct Today E11.9 - Type 2 diabetes mellitus without complications, R03.0 - Elevated blood-pressure reading, without diagnosis of hy pertension, R73.01 - Impaired fasting glucose Medications: New losartan 25 mg PO DAILY 30 tabs 0RF Coding Level of Care Code Est Pt Level 4 (56994) Complex EM visit Add On G2211 Diagnoses Type 2 diabetes mellitus with other specified complication, without long-term current use of insulin E11.69 Diabetes mellitus complication status: with other specified complication Diabetes mellitus penitentiary insulin use: without dedicated intermodal truck driver use Elevated blood pressure reading R03.0 Lipid disorder E78.9
== END 2023-11-25 13:36 | disposition home or self-care (01) ==
PROVIDERS: PCP Internal Medicine; Referring Provider Internal Medicine; Visit Provider Internal Medicine
DX: E11.69 Type 2 diabetes mellitus with other specified complication (principal); R03.0 Elevated blood-pressure reading, without diagnosis of hypertension; E78.9 Disorder of lipoprotein metabolism, unspecified
CPT/HCPCS: 99214; G2211

== ENCOUNTER 2023-11-25 13:41 | Outpatient (REF) | payer MEDICARE, SELFPAY ==
[2023-11-25 16:12] LABS: MANUAL DIFF FLAG NO
[2023-11-25 16:18] LABS: Basophils Absolute Auto 0.1 X10*3/uL (0.0-0.2); Basophils Percent Auto 0.8 % (0-2); Eosinophils Absolute Auto 0.2 X10*3/uL (0.0-0.4); Eosinophils Percent Auto 2.2 % (0-4); Hematocrit 39.1 % (37.0-47.0); Hemoglobin 13.4 g/dl (12.0-16.0); Imm Gran Abs Auto 0.03 X10*3/uL (0.00-0.03); Imm Gran Pct Auto 0.4 % (0.0-0.4); Lymphocytes Absolute Auto 2.1 X10*3/uL (1.2-4.9); Lymphocytes Percent Auto 28.8 % (20-40); Mean Corpuscular HGB Conc 34.3 g/dl (31.0-35.0); Mean Corpuscular Hemoglobin 31.7 pg (27.0-33.0); Mean Corpuscular Volume 92.4 fL (80.0-98.0); Mean Platelet Volume 10.3 fL (9.4-12.3); Monocytes Absolute Auto 0.5 X10*3/uL (0.1-1.2); Monocytes Percent Auto 7.2 % (2-11); Neutrophils Absolute Auto 4.3 x10*3/uL (2.0-8.3); Neutrophils Percent Auto 60.6 % (45-73); Platelet Count 294 X10*3/uL (160-400); Red Blood Count 4.23 X10*6/uL (4.20-5.50); Red Cell Distribution Width 12.7 % (11.0-16.0); White Blood Count 7.2 X10*3/uL (4.8-10.8)
[2023-11-25 17:01] LABS: Creatinine Urine 11.48 mg/dL; Microalbumin Urine < 5.0 mg/L
[2023-11-25 17:07] LABS: Estimated Average Glucose 134 mg/dL; Hemoglobin A1c % 6.3 % (<6.0)
[2023-11-25 17:14] LABS: Alanine Aminotransferase 15 U/L (0-31); Albumin Level 4.3 g/dL (3.5-5.0); Alkaline Phosphatase 52 U/L (39-117); Anion Gap 13 (12-20); Aspartate Amino Transferase 20 U/L (5-31); Bilirubin Total 0.6 mg/dL (0.0-1.0); Blood Urea Nitrogen 11 mg/dL (9-16); Calcium 9.6 mg/dL (8.4-10.2); Carbon Dioxide 25 mmol/L (22-29); Chloride 103 mmol/L (96-108); Estimated Glomerular Filt Rate > 60; Glucose Random 104 mg/dL (60-115); Potassium 3.8 mmol/L (3.3-5.1); Sodium 137 mmol/L (135-145); Total Protein 7.6 g/dL (6.5-8.0)
[2023-11-25 17:20] LABS: TSH reflex Free T4 2.15 uIU/mL (0.32-4.0)
[2023-11-26 11:54] LABS: LDL Cholesterol Direct 162 mg/dL (<100)
== END 2023-11-25 13:42 | disposition home or self-care (01) ==
LOC: HO.HMGCLDS 13:41
PROVIDERS: PCP Internal Medicine; Visit Provider Internal Medicine
DX: E11.9 Type 2 diabetes mellitus without complications (principal); R03.0 Elevated blood-pressure reading, without diagnosis of hypertension; R73.01 Impaired fasting glucose
CPT/HCPCS: 36415; 80053; 82043; 82570; 83036; 83721; 84443; 85025

== ENCOUNTER → 2023-12-05 13:45 | Outpatient (BNVA) | payer MEDICARE, SELFPAY | PROVIDERS: PCP Internal Medicine ==

== ENCOUNTER 2024-03-30 13:11 | Outpatient (AMB) | payer MEDICARE, SELFPAY ==
[2024-03-30 13:13] VITALS: BP 144/80; PULSE 78; O2SAT 98; BMI 30.8
--- NOTE | 2024-03-30 13:13 | A.OFFPC_ITS ---
Vital Signs 03/30/24 13:13 Height 5 ft 2 in Weight 168 lb 6 oz BMI 30.8 BP 144/80 H Blood Pressure Location Rt brachial Position Sitting Pulse 78 Pulse Source Pulse Oximeter Pulse Oximetry (%) 98 Oxygen Delivery Method Room Air Intake Visit Reasons: 4 month follow up Allergies No Known Allergies Allergy (Verified 03/30/24 13:16) Medication List - Last Reconciled 03/30/24 by Radha Aceves MD No Known Home Meds Tobacco use date assessed: 03/30/24 Fall risk assessment: No Falls in past year Last assessed Fall Risk: 03/30/24 Dental Screening Dental Screen Date: 03/30/24 Did you have a dental visit in the last 12 months?: No Did you have a dental problem in the last 6 months where you did not have access to dental care?: No Was dental information given to patient?: No HPI 4 month follow up HPI Details - The patient is a 68-year-old female pr esenting for lab tests and follow-up regarding Type 2 Diabetes Mellitus and Elevated LDL Cholesterol, and to discuss her positive Cologuard test. - She exercises daily and noted slight w eight gain recently. Her last Hemoglobin A1c was 6.5% in November. - Her cholesterol level indicated LDL is 162 mg/dL, above the target for diabetics, and she is not currently on lipid-lowering medications but is considering dietary improvements. Patient declined to take medication - There was a positive Cologuard test, n ecessitating further investigation via colonoscopy. - Plans include fasting blood tests for late April and a follow-up visit in July, already scheduled. Patient Instructions - Continue with daily exercise routine. - Follow dietary recommendations given b y the dietitian to manage cholesterol levels. - Have fasting blood tests at the end of April to monitor cholesterol levels. - Follow up with Dr. Parker for an urgent colonoscopy appointment as recommended for further evaluation of the positive Cologuard test. - Attend the next appointment in July for a comprehensive follow-up on your current health management. Review of Systems - Constitutional: Reports feeling overal l very good. - Endocrine: Denies symptoms of uncontro lled diabetes. - Gastrointestinal: Reports a positive C ologuard result. - Musculoskeletal: Denies any new sympto ms of aching legs or similar issues. - General: No fever no chills - Neurological: No headaches no dizziness - Ear nose throat: No sore throat no hearing difficulty no ear pain - Cardiovascular: No syncope, no chest pain, no palpitations - Gastrointestinal: No nausea vomiting or diarrhea - Endocrine: No polyuria polydipsia no heat intolerance - Genitourinary: No dysuria , no blood in urine Physical Exam - General: No acute distress - HEENT: No acute findings - Neck: Supple - Respiratory system: Able to talk in f ull sentences, no audible wheeze - cardiovascular: S1-S2 regular in rat e and rhythm - Gastrointestinal: No pain - Extremities: No new findings - DRYER FEEDER: Alert awake oriented x3 motor se nsory intact - Skin: Normal turgor PFSH Medical History Lipid disorder Impaired fasting blood sugar Pre-hypertension Surgical History History of tonsillectomy Hx of tubal ligation (1982) Hx of lumpectomy (01/2012) Social History Housing: House Patient Tobacco Use Status: Former Tobacco user e-Cigarette/Vaping Use: Never Used Current occupational status: employed Cognitive needs: No Hearing needs: No Vision needs: Yes Questionnaire PHQ-9 Over the last 2 weeks, how often have you been bothered by any of the following problems? 1. Little interest or pleasure in doing things: not at all 2. Feeling down, depressed, or hopeless: not at all 3. Trouble falling or staying asleep, or sleeping too much: not at all 4. Feeling tired or having little energy: not at all 5. Poor appetite or overeating: not at all 6. Feeling bad about yourself - or that you are a failure or have let yourself or your family down: not at all 7. Trouble concentrating on things, such as reading the newspaper or watching television: not at all 8. Moving or speaking so slowly that other people could have noticed. Or the opposite - being so fidgety or restless that you have been moving around a lot more than usual: not at all 9. Thoughts that you would be better off or of hurting yourself in some way: not at all Total score: 0 Depression Screening Interpretation: Negative Depression Screening Done: Yes 38438 - PHQ-9 Billing: Yes Source: Developed by Drs. Rogelio Orellana, Dulce Christie, Juan Mccullough and colleagues, with an educational shaji from [facility] [employer]. Thrive Questionnaire Date Thrive assessed: 03/30/24 I am a: Patient What is your living situation today?: I have a steady place to live Within the past 12 months, did the food you bought not last and you didn't have the money to get more?: Never true Within the past 12 months, did you worry whether your food would run out before you got money to buy more?: Never true Do you have trouble paying for medicines?: No Do you have trouble getting transportation to medical appointments?: No Do you have trouble paying your heating and electricity bill?: No Do you have trouble taking care of your child, family member or friend?: No Do you have trouble with day-to-day activities such as bathing, preparing meals, shopping, managing finances, etc.?: No Are you currently unemployed and looking for a job?: No Are you interested in more education?: No Please select the resources that you would like help with: None Currently or been in a relationship where the following occur: No concerns reported THRIVE Score: 0 AUDIT C Alcohol Use Questionnaire (AUDIT-C) 1. How often do you have a drink containing alcohol?: Never 3. How often do you have six or more drinks on one occasion?: Never Total Score: 0 Score Reviewed/Action Taken: Yes CHAYO-7 AMB Questionnaire CHAYO-7 Date CHAYO - 7 assessed: 03/30/24 Feeling nervous, anxious, or on edge: 0 = Not at all Not being able to stop or control worryin = Not at all Worrying too much about different things: 0 = Not at all Trouble relaxin = Not at all Being so restless that it is hard to sit still: 0 = Not at all Becoming easily annoyed or irritable: 0 = Not at all Feeling afraid as if something awful might happen: 0 = Not at all Total CHAYO-7 score (0-4 normal; 5-9 mild; 10-14 moderate; 15-21 severe): 0 Source: Developed by Dulce Araiza Kurt Kroenke and colleagues, with an educational shaji from [facility]. CHAYO-7 Assessment Billing CHAYO-7 Assessment Tool: CHAYO-7 Assessment 69469 Physical exam (Primary Care) Vital Signs: Last Vital Signs Pulse 78 03/30/24 13:13 BP 144/80 H 03/30/24 13:13 Pulse Ox 98 03/30/24 13:13 Oxygen Delivery Method Room Air 03/30/24 13:13 BMI result Body Mass Index 30.8 Tobacco/Smoking Status: Tobacco use Status Tobacco use date assessed 03/30/24 03/30/24 13:19 Patient Tobacco Use Status Former Tobacco user 03/30/24 13:19 e-Cigarette/Vaping Use Never Used 03/30/24 13:19 PHQ-9: PHQ-9 Score PHQ-9: Total score 0 03/30/24 13:21 Depression Screening Interpretation: Negative Thrive Assessment: Date of Thrive Assessment Date Thrive assessed 03/30/24 03/30/24 13:21 Currently or been in a relationship where the following occur: No concerns reported Coding Level of Care Code Est Pt Level 3 (93726) Complex EM visit Add On G2211 Diagnoses Positive colorectal cancer screening using Cologuard test R19.5 Lipid disorder E78.9 New onset type 2 diabetes mellitus E11.9 Class 1 obesity due to excess calories with serious comorbidity and body mass index (BMI) of 30.0 to 30.9 in adult E66.09; Z68.30 Obesity classification: adult class 1 (BMI 30 - 34.9) Serious obesity comorbidity presence: with serious comorbidity Body mass index: BMI 30.0-30.9 Additional Codes CHAYO-7 Assessment Billing - CHAYO-7 Assessment Tool: CHAYO-7 Assessment 31328 ([id number]) PHQ-9 - 05594 - PHQ-9 Billing: Yes ([id number]) Assessment & Plan Assessment & Plan (1) Positive colorectal cancer screening using Cologuard test: Code(s): R19.5 - Other fecal abnormalities Category: Medical (2) Lipid disorder: Code(s): E78.9 - Disorder of lipoprotein metabolism, unspecified Category: Medical (3) New onset type 2 diabetes mellitus: Code(s): E11.9 - Type 2 diabetes mellitus without complications Category: Medical (4) Obesity due to excess calories: Code(s): E66.09 - Other obesity due to excess calories Category: Medical Qualifiers: Obesity classification: adult class 1 (BMI 30 - 34.9) Serious obesity comorbidity presence: with serious comorbidity Body mass index: BMI 30.0-30.9 Qualified Code(s): E66.09 - Other obesity due to excess calories; Z68.30 - Body mass index [BMI] 30.0-30.9, adult Plan - The patient is a 68-year-old female presenting for lab tests and follow-up regarding Type 2 Diabetes Mellitus and Elevated LDL Cholesterol, and to discuss her positive Cologuard test. - She exercises daily and noted slight weight gain recently. Her last Hemoglobin A1c was 6.5% in November. - Her cholesterol level indicated LDL is 162 mg/dL, above the target for diabetics, and she is not currently on lipid-lowering medications but is considering dietary improvements. Patient declined to take medication - There was a positive Cologuard test, necessitating further investigation via colonoscopy. - Plans include fasting blood tests for late April and a follow-up visit in July, already scheduled. Patient Instructions - Continue with daily exercise routine. - Follow dietary recommendations given by the dietitian to manage cholesterol levels. - Have fasting blood tests at the end of April to monitor cholesterol levels. - Follow up with Dr. Parker for an urgent colonoscopy appointment as recommended for further evaluation of the positive Cologuard test. - Attend the next appointment in July for a comprehensive follow-up on your current health management. Orders: Orders Comprehensive Tribune. Panel Fast Today E11.9 - Type 2 diabetes mellitus without complications, E66.09 - Other obesity due to excess calories, E78.9 - Disorder of lipoprotein metabolism, unspecified, Z68.30 - Body mass index [BMI] 30.0- 30.9, adult Lipid Panel Today E11.9 - Type 2 diabetes mellitus without complications, E66.09 - Other obesity due to excess calories, E78.9 - Disorder of lipoprotein metabolism, unspecified, Z68.30 - Body mass index [BMI] 30.0-30.9, adult Hemoglobin A1c Today E11.9 - Type 2 diabetes mellitus without complications Microalbumin, Random (w Creat) Today E11.9 - Type 2 diabetes mellitus without complications Referrals Gastroenterology Referral R19.5 - Other fecal abnormalities
== END 2024-03-30 13:42 | disposition home or self-care (01) ==
PROVIDERS: PCP Internal Medicine; Visit Provider Internal Medicine
DX: R19.5 Other fecal abnormalities (principal); E78.9 Disorder of lipoprotein metabolism, unspecified; E11.9 Type 2 diabetes mellitus without complications; E66.09 Other obesity due to excess calories; Z68.30 Body mass index [BMI] 30.0-30.9, adult

== ENCOUNTER → 2024-03-30 13:11 | Outpatient (BNVA) | payer MEDICARE, SELFPAY | PROVIDERS: PCP Internal Medicine; Visit Provider Internal Medicine | DX: E11.9 Type 2 diabetes mellitus without complications (principal); E78.00 Pure hypercholesterolemia, unspecified; E78.9 Disorder of lipoprotein metabolism, unspecified; R19.5 Other fecal abnormalities; E66.09 Other obesity due to excess calories; Z68.30 Body mass index [BMI] 30.0-30.9, adult | CPT/HCPCS: 96127; 99212 ==

== ENCOUNTER 2024-05-07 06:17 | Outpatient (REF) | payer MEDICARE, SELFPAY ==
[2024-05-07 10:29] LABS: Alanine Aminotransferase 19 U/L (0-31); Albumin Level 4.1 g/dL (3.5-5.0); Alkaline Phosphatase 62 U/L (39-117); Anion Gap 10 (12-20); Aspartate Amino Transferase 23 U/L (5-31); Bilirubin Total 0.5 mg/dL (0.0-1.0); Blood Urea Nitrogen 19 mg/dL (9-16); Calcium 9.5 mg/dL (8.4-10.2); Carbon Dioxide 28 mmol/L (22-29); Chloride 103 mmol/L (96-108); Cholesterol 266 mg/dL (<200); Estimated Glomerular Filt Rate > 60; Glucose Fasting 158 mg/dL (60-99); HDL Cholesterol 74 mg/dL (>40); LDL Cholesterol Calculated 176 mg/dL (<100); Potassium 4.2 mmol/L (3.3-5.1); Sodium 137 mmol/L (135-145); Total Protein 7.7 g/dL (6.5-8.0); Triglycerides 84 mg/dL (<150)
[2024-05-07 10:34] LABS: Estimated Average Glucose 143 mg/dL; Hemoglobin A1C 176.7285 umol/L; Hemoglobin A1c % 6.6 % (<6.0); Total Hemoglobin (HGBA1C) 3634.8008 umol/L
[2024-05-07 11:24] LABS: Microalbum/Creatinine Ratio Ur 10.1 ug/mg cr (<30)
== END 2024-05-07 06:18 | disposition home or self-care (01) ==
LOC: HO.HMGCLDS 06:17
PROVIDERS: PCP Internal Medicine; Visit Provider Internal Medicine
DX: E66.09 Other obesity due to excess calories (principal); Z68.30 Body mass index [BMI] 30.0-30.9, adult; E11.9 Type 2 diabetes mellitus without complications; E78.9 Disorder of lipoprotein metabolism, unspecified
CPT/HCPCS: 36415; 80053; 80061; 82043; 82570; 83036

== ENCOUNTER 2024-07-21 15:10 | Outpatient (AMB) | payer MEDICARE, SELFPAY ==
--- NOTE | 2024-07-21 15:11 | A.OFFPC_ITS ---
Vital Signs 07/21/24 15:12 Height 5 ft 2 in Weight 173 lb BMI 31.6 BP 148/90 H Blood Pressure Location Rt brachial Position Sitting Pulse 65 Pulse Source Pulse Oximeter Pulse Oximetry (%) 95 Oxygen Delivery Method Room Air Intake Visit Reasons: PE Allergies No Known Allergies Allergy (Verified 07/21/24 15:12) Medication List - Last Reconciled 07/21/24 by Radha Aceves MD No Known Home Meds Tobacco use date assessed: 07/21/24 Fall risk assessment: No Falls in past year Last assessed Fall Risk: 07/21/24 Dental Screening Dental Screen Date: 07/21/24 Did you have a dental visit in the last 12 months?: Yes Did you have a dental problem in the last 6 months where you did not have access to dental care?: No Was dental information given to patient?: Patient has dentist HPI PE HPI Details History of Present Illness - The patient is a 69-year-old female pr esenting with concerns regarding hypertension and diabetes management. - Hypertension: Blood pressure tends to be elevated during office visits; previously 144 mmHg systolic in March and now 148 mmHg systolic. At home, blood pressure readings have been reported as normal, approximately 120/80 mmHg. - Diabetes Mellitus: Previously diagnose d as diabetic with a recent fasting glucose of 158 mg/dL and hemoglobin A1c of 6.6%. No current medication is prescribed for diabetes as the patient is managed with lifestyle interventions. - Hyperlipidemia: Noted elevated cholest elizabeth levels. The patient declines medication for hyperlipidemia and is trying to manage through diet and exercise. She reports working towards weight loss but was set back due to a muscle injury. - Positive Cologuard: The patient report s a positive Cologuard test and is scheduled to see Dr. Nunes for further evaluation. - Acknowledged the need for a bone dens ity test Health Maintenance - Colonoscopy scheduled following a posi tive Cologuard result. - Bone density test recommended but not yet completed. - Routine mammogram was performed last y ear in May. - Discussion regarding the importance of vitamin D supplementation, recommended 1000 IU daily. - Emphasis on weight-bearing exercises a nd general physical activity as indicated by patient lifestyle. Medications - Patient not currently on medications f or hypertension, diabetes, or hyperlipidemia as she is managing through lifestyle interventions. 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 Diagnostic results - Labs from November show normal CBC, e lectrolytes, and kidney function. - Fasting glucose: 158 mg/dL - Hemoglobin A1c: 6.6% - Positive Cologuard test. Patient Instructions - Bring home blood pressure monitor kyree nesbitt next visit to verify accuracy. - Maintain dietary changes and physical exercise for cholesterol management. And lose weight, hair BMI is 31.6 - Begin vitamin D 1000 IU daily suppleme nt. - Monitor symptoms and return if experie ncing any significant changes or discomfort. Review of Systems - General: No fever no chills - Neurological: No headaches no dizzin ess - Ear nose throat: No sore throat no hearing difficulty no ear pain - Cardiovascular: No syncope, no chest pain, no palpitations - Gastrointestinal: No nausea vomiting or diarrhea - Endocrine: No polyuria polydipsia no heat intolerance - Genitourinary: No dysuria - Skin: No new complaints Physical Exam General: Cooperative, healthy appearing, comfortable, no acute distress Orientation: Patient oriented x3 Head: Normal to inspection Ears: Within normal limit visually Nose: Normal external nose present Face and sinus: Normal facial exam Eyes: Appearance normal, extraocular movement intact pupils reactive Neck: Normal visual inspection and supple Respiratory: Normal respiratory effort and able to speak in complete sentences. Clear to auscultation, no stridor Cardiovascular: S1 and S2, blood pressure elevated Breast exam declined GI: Normal to inspection. Soft to palpation and nontender Skin: Turgor normal, no acute findings Neuro: Patient oriented x3, motor sensory intact, balance intact, tandem pass Extremities: Normal to inspection, no swelling, range of motion intact [facility] Medical History Lipid disorder Impaired fasting blood sugar Pre-hypertension Surgical History History of tonsillectomy Hx of tubal ligation (1982) Hx of lumpectomy (01/2012) Social History Housing: House Patient Tobacco Use Status: Former Tobacco user e-Cigarette/Vaping Use: Never Used service: No Current occupational status: employed Cognitive needs: No Hearing needs: No Vision needs: Yes Questionnaire PHQ-9 Over the last 2 weeks, how often have you been bothered by any of the following problems? 1. Little interest or pleasure in doing things: not at all 2. Feeling down, depressed, or hopeless: not at all 3. Trouble falling or staying asleep, or sleeping too much: not at all 4. Feeling tired or having little energy: not at all 5. Poor appetite or overeating: not at all 6. Feeling bad about yourself - or that you are a failure or have let yourself or your family down: not at all 7. Trouble concentrating on things, such as reading the newspaper or watching television: not at all 8. Moving or speaking so slowly that other people could have noticed. Or the op posite - being so fidgety or restless that you have been moving around a lot more than usual: not at all 9. Thoughts that you would be better off or of hurting yourself in some way: not at all Total score: 0 Depression Screening Interpretation: Negative Depression Screening Done: Yes 55606 - PHQ-9 Billing: Yes Source: Developed by Drs. Rogelio Orellana, Dulce Christie, Juan Mccullough and colleagues, with an educational shaji from [employer]. Thrive Questionnaire Date Thrive assessed: 07/21/24 I am a: Patient What is your living situation today?: I have a steady place to live Within the past 12 months, did the food you bought not last and you didn't have the money to get more?: Never true Within the past 12 months, did you worry whether your food would run out before you got money to buy more?: Never true Do you have trouble paying for medicines?: No Do you have trouble getting transportation to medical appointments?: No Do you have trouble paying your heating and electricity bill?: No Do you have trouble taking care of your child, family member or friend?: No Do you have trouble with day-to-day activities such as bathing, preparing meals, shopping, managing finances, etc.?: No Are you currently unemployed and looking for a job?: No Are you interested in more education?: No Please select the resources that you would like help with: None Currently or been in a relationship where the following occur: No concerns reported THRIVE Score: 0 AUDIT C Alcohol Use Questionnaire (AUDIT-C) 1. How often do you have a drink containing alcohol?: Monthly or less 2. How many drinks containing alcohol do you have on a typical day when you are drinking?: 1 or 2 3. How often do you have six or more drinks on one occasion?: Never Total Score: 1 Score Reviewed/Action Taken: Yes CHAYO-7 AMB Questionnaire CHAYO-7 Date CHAYO - 7 assessed: 07/21/24 Feeling nervous, anxious, or on edge: 0 = Not at all Not being able to stop or control worryin = Not at all Worrying too much about different things: 0 = Not at all Trouble relaxin = Not at all Being so restless that it is hard to sit still: 0 = Not at all Becoming easily annoyed or irritable: 0 = Not at all Feeling afraid as if something awful might happen: 0 = Not at all Total CHAYO-7 score (0-4 normal; 5-9 mild; 10-14 moderate; 15-21 severe): 0 Source: Developed by Drs. Rogelio Orellana, Dulce Christie, Juan Mccullough and colleagues, with an educational shaji from [employer]. CHAYO-7 Assessment Billing CHAYO-7 Assessment Tool: CHAYO-7 Assessment 73967 Physical exam (Primary Care) Vital Signs: Last Vital Signs Pulse 65 07/21/24 15:12 BP 148/90 H 07/21/24 15:12 Pulse Ox 95 07/21/24 15:12 Oxygen Delivery Method Room Air 07/21/24 15:12 BMI result Body Mass Index 31.6 Tobacco/Smoking Status: Tobacco use Status Tobacco use date assessed 07/21/24 07/21/24 15:13 Patient Tobacco Use Status Former Tobacco user 07/21/24 15:13 e-Cigarette/Vaping Use Never Used 07/21/24 15:13 PHQ-9: PHQ-9 Score PHQ-9: Total score 0 07/21/24 15:13 Depression Screening Interpretation: Negative Thrive Assessment: Date of Thrive Assessment Date Thrive assessed 07/21/24 07/21/24 15:13 Currently or been in a relationship where the following occur: No concerns reported Coding Level of Care Code Est Pt Level 3 (73188) Est Pt Prev Care >65y(79687) Diagnoses Encounter for general adult medical examination with abnormal findings Z00.01 Diabetes mellitus type 2 in obese E11.69; E66.9 Lipid disorder E78.9 Menopausal state N95.1 Class 1 obesity due to excess calories with serious comorbidity and body mass index (BMI) of 30.0 to 30.9 in adult E66.09; Z68.30 Body mass index: BMI 30.0-30.9 Obesity classification: adult class 1 (BMI 30 - 34.9) Serious obesity comorbidity presence: with serious comorbidity Elevated blood pressure reading R03.0 Additional Codes CHAYO-7 Assessment Billing - CHAYO-7 Assessment Tool: CHAYO-7 Assessment 78690 ([id number]) PHQ-9 - 42405 - PHQ-9 Billing: Yes ([id number]) Assessment & Plan Assessment & Plan (1) Encounter for general adult medical examination with abnormal findings: Code(s): Z00.01 - Encounter for general adult medical examination with abnormal findings Category: Medical (2) Diabetes mellitus type 2 in obese: Code(s): E11.69 - Type 2 diabetes mellitus with other specified complication; E66.9 - Obesity, unspecified Category: Medical (3) Lipid disorder: Code(s): E78.9 - Disorder of lipoprotein metabolism, unspecified Category: Medical (4) Menopausal state: Code(s): N95.1 - Menopausal and female climacteric states Category: Medical (5) Obesity due to excess calories: Code(s): E66.09 - Other obesity due to excess calories Category: Medical Qualifiers: Body mass index: BMI 30.0-30.9 Obesity classification: adult class 1 (BMI 30 - 34.9) Serious obesity comorbidity presence: with serious comorbidity Qualified Code(s): E66.09 - Other obesity due to excess calories; Z68.30 - Body mass index [BMI] 30.0-30.9, adult (6) Elevated blood pressure reading: Code(s): R03.0 - Elevated blood-pressure reading, without diagnosis of hypertension Category: Medical Plan History of Present Illness - The patient is a 69-year-old female presenting with concerns regarding hypertension and diabetes management. - Hypertension: Blood pressure tends to be elevated during office visits; previously 144 mmHg systolic in March and now 148 mmHg systolic. At home, blood pressure readings have been reported as normal, approximately 120/80 mmHg. - Diabetes Mellitus: Previously diagnosed as diabetic with a recent fasting glucose of 158 mg/dL and hemoglobin A1c of 6.6%. No current medication is prescribed for diabetes as the patient is managed with lifestyle interventions. - Hyperlipidemia: Noted elevated cholesterol levels. The patient declines medication for hyperlipidemia and is trying to manage through diet and exercise. She reports working towards weight loss but was set back due to a muscle injury. - Positive Cologuard: The patient reports a positive Cologuard test and is scheduled to see Dr. Nunes for further evaluation. - Acknowledged the need for a bone density test Health Maintenance - Colonoscopy scheduled following a positive Cologuard result. - Bone density test recommended but not yet completed. - Routine mammogram was performed last year in May. - Discussion regarding the importance of vitamin D supplementation, recommended 1000 IU daily. - Emphasis on weight-bearing exercises and general physical activity as indicated by patient lifestyle. Medications - Patient not currently on medications for hypertension, diabetes, or hyperlipidemia as she is managing through lifestyle interventions. 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 Diagnostic results - Labs from November show normal CBC, electrolytes, and kidney function. - Fasting glucose: 158 mg/dL - Hemoglobin A1c: 6.6% - Positive Cologuard test. Patient Instructions - Bring home blood pressure monitor during next visit to verify accuracy. - Maintain dietary changes and physical exercise for cholesterol management. And lose weight, hair BMI is 31.6 - Begin vitamin D 1000 IU daily supplement. - Monitor symptoms and return if experiencing any significant changes or discomfort. Orders: Orders Hemoglobin A1c Today E11.69 - Type 2 diabetes mellitus with other specified complication, E66.09 - Other obesity due to excess calories, E66.9 - Obesity, unspecified, E78.9 - Disorder of lipoprotein metabolism, unspecified, N95.1 - Menopausal and female climacteric states, R03.0 - Elevated blood-pressure reading, without diagnosis of hypertension, Z68.30 - Body mass index [BMI] 30.0- 30.9, adult Microalbumin, Random (w Creat) Today E11.69 - Type 2 diabetes mellitus with other specified complication, E66.09 - Other obesity due to excess calories, E66.9 - Obesity, unspecified, E78.9 - Disorder of lipoprotein metabolism, unspecified, N95.1 - Menopausal and female climacteric states, R03.0 - Elevated blood-pressure reading, without diagnosis of hypertension, Z68.30 - Body mass index [BMI] 30.0-30.9, adult Comprehensive [place]. Panel Fast Today . - Type 2 diabetes mellitus with other specified complication, E66.09 - Other obesity due to excess calories, E66.9 - Obesity, unspecified, E78.9 - Disorder of lipoprotein metabolism, unspecified, N95.1 - Menopausal and female climacteric states, R03.0 - Elevated blood-pressure reading, without diagnosis of hypertension, Z68.30 - Body mass index [BMI] 30.0-30.9, adult Lipid Panel Today . - Type 2 diabetes mellitus with other specified complication, E66.09 - Other obesity due to excess calories, E66.9 - Obesity, unspecified, E78.9 - Disorder of lipoprotein metabolism, unspecified, N95.1 - Menopausal and female climacteric states, R03.0 - Elevated blood-pressure reading, without diagnosis of hypertension, Z68.30 - Body mass index [BMI] 30.0- 30.9, adult Vitamin D 25-OH (D2 and D3) Today - Type 2 diabetes mellitus with other specified complication, E66.09 - Other obesity due to excess calories, E66.9 - Obesity, unspecified, E78.9 - Disorder of lipoprotein metabolism, unspecified, N95.1 - Menopausal and female climacteric states, R03.0 - Elevated blood- pressure reading, without diagnosis of hypertension, Z68.30 - Body mass index [BMI] 30.0-30.9, adult Vitamin B12 Today - Type 2 diabetes mellitus with other specified complication, E66.09 - Other obesity due to excess calories, E66.9 - Obesity, unspecified, E78.9 - Disorder of lipoprotein metabolism, unspecified, N95.1 - Menopausal and female climacteric states, R03.0 - Elevated blood-pressure reading, without diagnosis of hypertension, Z68.30 - Body mass index [BMI] 30.0- 30.9, adult Complete Blood Count Auto Diff Today - Type 2 diabetes mellitus with other specified complication, E66.09 - Other obesity due to excess calories, E66.9 - Obesity, unspecified, E78.9 - Disorder of lipoprotein metabolism, unspecified, N95.1 - Menopausal and female climacteric states, R03.0 - Elevated blood-pressure reading, without diagnosis of hypertension, Z68.30 - Body mass index [BMI] 30.0-30.9, adult TSH reflex Free T4 Today E11.69 - Type 2 diabetes mellitus with other specified complication, E66.09 - Other obesity due to excess calories, E66.9 - Obesity, unspecified, E78.9 - Disorder of lipoprotein metabolism, unspecified, N95.1 - Menopausal and female climacteric states, R03.0 - Elevated blood-pressure reading, without diagnosis of hypertension, Z68.30 - Body mass index [BMI] 30.0- 30.9, adult Referrals FUTURES TRADER Referral Z01.419 - Encounter for gynecological examination (general) (routine) without abnormal findings Medications: New cholecalciferol (vitamin D3) 25 mcg PO DAILY 90 days 90 caps 1RF
[2024-07-21 15:12] VITALS: BP 148/90; PULSE 65; O2SAT 95; BMI 31.6
--- OUTSIDE RECORDS SUMMARY | 2024-07-21 16:10 | XMS_ITS | Clinical Summary ---
Author Organization [facility] Address [address] [place] [address] Care Team Providers Care Mortgage Closer Name Role Phone Radha Aceves MD Primary Care Provider [phone] Allergies No known active allergies Medications No [...] age to complete this topic Care Teams Mortgage Closer Relationship Specialty Start Date End Date Radha Aceves MD [address] [facility] [place] [phone] PCP - General Internal Medicine 05/02/20
--- OUTSIDE RECORDS SUMMARY | 2024-07-21 16:10 | XMS_ITS | Patient Health Record ---
Author Organization [facility] Address [address] [place], [place] [address] [place] [address] Care Team Providers Care Pillowcase Folder Name Role Phone Ketan MOSES, [facility] Primary Care Provider Rogelio Bay [phone] Allergies No Known Allergies Reason For Referral No Information Immunizations Vaccine Route Administration Date Status Comme nts Influenza Unknown 05/05/2024 Refused Problems Problem Type SNOMED Code ICD Code Onset Dates Problem Status W/U Status Risk Notes Problem Positive colorectal cancer screening using Cologuard test (R19.5) Active confirmed Vital Signs Temperature 98.6 degrees Fahrenheit 05/05/2024 Blood pressure diastolic 01 mm Hg 05/05/2024 Height 62 in 05/05/2024 Blood pressure systolic 001 mm Hg 05/05/2024 Weight 165 lbs 05/05/2024 BMI 30.18 kg/m2 05/05/2024 Encounters Encounter Location Date Provider Diagnosis [facility] [address] [place] [phone] 05/05/2024 Rogelio Parker Positive colorectal cancer screening using Cologuard test R19.5 [facility] [address] [place] [phone] 04/09/2024 Rogelio Parker Assessments Encounter Date Diagnosis (ICD Code) Assessment Notes Treatment Notes Treatment Clinical Notes Section Notes 05/05/2024 Positive colorectal cancer screening using Cologuard test (ICD-10 - R19.5) Plan Of Treatment Future Test Test Name Order Date COLONOSCOPY 05/05/2024 Next Appt Details Provider Name:Rogelio Parker , 08/23/2024 08:30:00 AM, [address] [place] [address] , [place], [place], [phone], Insurance Providers Payer Name Payer Address Payer Phone Subscriber Number Group Number Insured Name Patient Relationship to Insured Coverage Start Date Coverage End Date [facility] [address] [place] [address] [id number] JAYSON LEONG Self - patient is the insured Medical (General) History Medical History History ICD Code Breast cancer--left side-lumpectomy, XRT -2011 Denies MO,DM,CVA,Lung disease,renal dise ase Negative colonoscopy age 49 at [facility] and in [address] Haro at [facility] Surgical History Surgery Date(Month/Year) Tonsils 1962 BTL 1979 Lumpectomy, left breast 2011
--- OUTSIDE RECORDS SUMMARY | 2024-07-21 16:10 | XMS_ITS ---
Author Organization [facility] Address [address] [place] [phone] Care Team Providers Care Director Of Materials Management Name Role Phone Ketan MOSES, Radha Primary Care Provider Rogelio Bay [phone] REASON FOR VISIT Patient presents today for positive cologuard Encounters Encounter Location Date Provider Diagnosis [facility] [address] [place] [phone] 04/09/2024 Rogelio Parker Plan Of Treatment Next Appt Details Provider Name:Rogelio Parker , 08/23/2024 08:30:00 AM, [address] [place] [address] , [place], [place], [phone], Progress Notes * LISETHIGNACIAJAYSON VASQUEZ LYNDADOB: (69 yo F)Acc No.[id number]:04/09/2024 Progress Notes Patient:?LISETHIGNACIAJAYSON VASQUEZ OL Provider:?Rogelio Parker MD :1955???Age:68 Y???Sex:Female D ate:04/09/2024 Address: [address] [phone] Pcp:Radha Aceves MD Subjective: * Chief Complaints: * ???1. Patient presents today for positive cologuard. * Medical History:? Objective: * Vitals:? Assessment: Plan: * Treatment: * * The named appointment provid er may or may not be the originator of this progress note, and it is not deemed complete until electronically signed by the appointment provider. Sign off status: Pending * Provider:?Rogelio Parker MD Date:? 025 Generated for Lexi nesbitt/Zackary/Falguni on:?07/21/2024 04:10 PM EDT
--- OUTSIDE RECORDS SUMMARY | 2024-07-21 16:10 | XMS_ITS ---
Author Organization [facility] Address [address] [place] [phone] Care Team Providers Care Band Edger Name Role Phone Ketan MOSES, [facility] Primary Care Provider Rogelio Bay [phone] Allergies No Known Allergies REASON FOR VISIT Patient presents today for a positive cologuard Immunizations Vaccine Route Administration Date Status Comme nts Influenza Unknown 05/05/2024 Refused Problems Problem Type SNOMED Code ICD Code Onset Dates Problem Status W/U Status Risk Notes Problem Positive colorectal cancer screening using Cologuard test (R19.5) Active confirmed Vital Signs Temperature 98.6 degrees Fahrenheit 05/05/19 25 Blood pressure systolic 001 mm Hg 05/05/19 25 Blood pressure diastolic 01 mm Hg 025 Height 62 in 05/05/2024 Weight 165 lbs 05/05/2024 BMI 30.18 kg/m2 05/05/2024 Encounters Encounter Location Date Provider Diagnosis [facility] [address] [place] [phone] 05/05/2024 Rogelio Parker Positive colorectal cancer screening using Cologuard test R19.5 Assessments Encounter Date Diagnosis (ICD Code) Assessment Notes Treatment Notes Treatment Clinical Notes Section Notes 05/05/2024 Positive colorectal cancer screening using Cologuard test (ICD-10 - R19.5) Plan Of Treatment Future Test Test Name Order Date COLONOSCOPY 05/05/2024 Next Appt Details Follow Up: prn, Reason: Provider Name:Rogelio Parker , 08/23/2024 08:30:00 AM, [address] [place], [place] [address], [place], [phone], Progress Notes * JAYSON LEOGNDOB: (69 yo F)Acc No.[id number]:05/05/2024 Progress Notes Patient:JAYSON DE GUZMAN Provider:?Rogelio Parker MD :1955???Age:68 Y???Sex:Female D ate:05/05/2024 [id number] Pcp:Radha Aceves MD Subjective: * Chief Complaints: * ???Patient presents today fo r a positive cologuard * Medical History:? * Surgical History:?Tonsils 19 63BTL 1980Lumpectomy, left breast 2011 * Hospitalization/Major Diagno stic Procedure:?No Hospitalization History. * Family History:? No colon cancer. * Social History:?Miscellaneous:?Marital status: . 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 ???Nonsmoker; no sig alcohol. * Medications:?None * Allergies:?N.K.D.A.yes[Aller gies Verified] Objective: * Vitals:?Wt: 165 lbs, Ht: 62 in, BMI: 30.18 Index, BP: 001/01 mm Hg, Temp: 98.6, Ht-cm: 157.48, Wt-k.84. Assessment: * Assessment: 1.?Positive colorectal cance r screening using Cologuard test - R19.5 (Primary)??? Plan: * Treatment: * Immunizations:? Influenza (Not administered - Refused: Patient decision) * Procedure Codes:?3017F COLOR ECTAL CA SCREEN DOC [id number] TOBACCO NON-[id number] BP SCR NOT PRFRM REC REASON NOS * Preventive Medicine:? ??Counseling:?Care goal follow-up plan:?Above Normal BMI Follow-up?Dietary management education, guidance, and counseling,?BMI management provided?Yes.? ??Urinary Incontinence:?Urinary Incontinence?Assessment:?Absent,?Plan of care documented:?No, reason not specified.? ??Screenings:?Fall Risk Screening?Fall Risk Assessment:?No falls in the past year,?Screening:?No falls in the past year,?Assessment:?Not performed, no reason specified,?Plan of Care:?Not documented, no reason specified.? * Follow Up:?prn * * Sign off status: Completed true * Provider:?Rogelio Parker MD Date:? 025 Generated for Lexi nesbitt/Zackary/eTransmitting on:?07/21/2024 04:10 PM EDT
--- OUTSIDE RECORDS SUMMARY | 2024-07-21 16:10 | XMS_ITS ---
Author Organization [facility] Address [address] [place] [phone] Care Team Providers Care Forensic Science Technician Name Role Phone Ketan MOSES, [facility] Primary Care Provider Rogelio Bay [phone] REASON FOR VISIT new pt appt Encounters Encounter Location Date Provider Diagnosis [facility] [address] [place] [phone] 04/09/2024 Rogelio Parker Plan Of Treatment Next Appt Details Provider Name:Rogelio Parker , 08/23/2024 08:30:00 AM, [address] [place] [address] , [place], [place], [phone], Progress Notes * JAYSON LEONGDOB: (68 yo F)Acc No.[id number]:04/09/2024 Patient:?RANDELLJAYSON VASQUEZ :1955???Age:68 Y???Sex:Female Address:[address] [place] [address] , [place], [address] * true * Date:? Generated for Matthewi delicia/Zackary/eTransmitting on:?07/21/2024 04:10 PM EDT
--- OUTSIDE RECORDS SUMMARY | 2024-07-21 16:11 | XMS_ITS | Clinical Summary ---
Author Organization [facility] Address [address] [place] [address] Phone Care Team Providers Care Motorcycle Fabricator Name Role Phone Radha Aceves MD Primary Care Provider [phone] Allergies No known active allergies Medications No known medications Active Problems Problem Noted Date Diagnosed Date Malignant neoplasm of upper- outer quadrant of female breast ([facility] V24, [facility] V28) 12/01/2023 Encounters Date Type Department Care Team Description 05/24/2024 9:31 AM EDT - 05/24/2024 11:59 PM EDT Hospital [facility] [address] [phone] Malignant neoplasm of upper-outer quadrant of female breast ([facility]/HCC V24, [facility] V28); Encounter for screening mammogram for malignant neoplasm of breast Discharge Disposition: Home or Self Care 05/24/2024 9:00 AM EDT Office Visit [facility] [address] [place] [phone] Shannan Joyce DO Malignant neoplasm of upper-outer quadrant of left breast in female, estrogen receptor positive (CMS/HCC V24, [facility] V28) (Primary Dx) from Last 3 Months [...] Description 05/30/2025 9:00 AM EDT Office Visit [facility] [address] [place] [phone] Shannan Joyce, [address] [place] [address] Health Maintenance Due Date Last Done Comments [...] upper-outer quadrant of female breast (CMS/HCC V24, [facility] V28) Encounter for screening mammogram for malignant [...] year. Mammography location: [facility] [address], [address] -------- FINAL REPORT -------- Dictated By: Nirav Berkowitz Dictated Date: 05/24/2024 11:33 ET Assigned Physician: Nirav Berkowitz Reviewed and Electronically Signed By: Nirav Berkowitz Signed Date: 05/24/2024 11:50 ET Workstation ID: [id number] Transcribed By: Self Edit Transcribed Date: 05/24/2024 [...] year. Mammography location: [facility] [address] [place], [address] -------- FINAL REPORT -------- Dictated By: Nirav Berkowitz Dictated Date: 05/24/2024 11:33 ET Assigned Physician: Nirav Berkowitz Reviewed and Electronically Signed By: Nirav Berkowitz Signed Date: 05/24/2024 11:50 ET Workstation ID: [id number] Transcribed By: Self Edit Transcribed Date: 05/24/2024 11:38 ET us Shannan Joyce DO IMG BI PROCEDURES Fin al Result * BERT DEXA AXIAL SKELETON (04/09/2018 3:12 PM EST) Anatomical Region Laterality Modality Mammography 04/09/2018 2:00 PM EST Narrative 04/09/2018 3:12 PM EST [facility] Diagnostic Imaging Department [address] [place] [address] Patient: ??LESLEE CHAPARRO ?/Age/Sex: 1955 - 62 - Unit#: ??[id number] ? Location/Status: ??SPDIMAM/REG CLI ? [facility] Ordering Physician: ??AKHIL LIMON MD [facility] Dexa Axial Skeleton - 04/09/18 - HISTORY: [...] probability of hip fracture of 0.1%. Code 48087 Dictating Physician: ??GONZALEZ RODRIGUEZ MD Electronically Signed by: ??GONZALEZ RODRIGUEZ MD Dic Date/Time: ??04/09/18 1511 Sign date/Time: ??04/09/18 1512 Procedure Note Gonzalez Rodriguez MD - 03/06/2022 [facility] Diagnostic Imaging Department [address] [place] [address] Patient: LESLEE CHAPARRO /Age/Sex: 1955 - 62 - F Unit#: [id number] [facility] Ordering Physician: AKHIL LIMON MD Bert Dexa [...] density of the femurs bilaterally is 1.239 gm/mc3gnrlu is 123% of that of young normals [...] probability of hip fracture of 0.1%. Code 54748 Dictating Physician: GONZALEZ RODRIGUEZ MD Electronically Signed by: GONZALEZ RODRIGUEZ MD Dic Date/Time: 04/09/18 1511 Sign date/Time: 04/09/18 151 Akhil Limon MD IMG BI PROCEDURES Final Result from Last 3 Months or Most Recently Relevant to Health Maintenance Insurance [employer] - [place] MEDICARE ADVANTAGE Care Teams Motorcycle Fabricator Relationship Specialty Start Date End Date Radha Aceves MD [address] [place] [phone] PCP - General Internal Medicine 05/02/20
== END 2024-07-21 15:42 | disposition home or self-care (01) ==
LOC: HO.HMCC 15:11
PROVIDERS: PCP Internal Medicine; Visit Provider Internal Medicine
DX: Z00.00 Encounter for general adult medical examination without abnormal findings (principal); E11.69 Type 2 diabetes mellitus with other specified complication; R03.0 Elevated blood-pressure reading, without diagnosis of hypertension; E66.09 Other obesity due to excess calories; Z68.30 Body mass index [BMI] 30.0-30.9, adult; N95.1 Menopausal and female climacteric states; E78.9 Disorder of lipoprotein metabolism, unspecified

== ENCOUNTER → 2024-07-21 15:10 | Outpatient (BNVA) | payer MEDICARE, SELFPAY | PROVIDERS: PCP Internal Medicine; Visit Provider Internal Medicine | DX: Z00.01 Encounter for general adult medical examination with abnormal findings (principal); E11.69 Type 2 diabetes mellitus with other specified complication; E66.09 Other obesity due to excess calories; Z68.31 Body mass index [BMI] 31.0-31.9, adult; E78.9 Disorder of lipoprotein metabolism, unspecified; N95.1 Menopausal and female climacteric states; R03.0 Elevated blood-pressure reading, without diagnosis of hypertension | CPT/HCPCS: 96127; 99212; 99397 ==

== ENCOUNTER 2024-08-23 06:46 | Day surgery (SDC) | payer MEDICARE, SELFPAY ==
--- OUTSIDE RECORDS SUMMARY | 2024-07-16 06:43 | XMS_ITS | Clinical Summary ---
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, estrogen receptor positive 08/30/2016 Overview: T1 BN 0 Social History Tobacco Use Types Packs/Day Years Used Date Smoking Tobacco: Former Smokeless Tobacco: Never Alcohol Use Standard Drinks/Week Comments Yes 0 (1 standard drink = 0.6 oz pur e alcohol) socially Sex and Gender Information Value Date Recorded Sex Assigned at Not on file Gender Identity Not on file Sexual Orientation Not on file Job Start Date Occupation Industry Not on file Not on file Not on file Last Filed Vital Signs Vital Sign Reading Time Taken Comments Blood Pressure 153/75 05/26/2023 9:00 AM EDT Pulse 71 05/26/2023 9:00 AM EDT Temperature 36.7 ??C (98 ??F) 05/26/2023 9:00 AM EDT Respiratory Rate - - Oxygen Saturation 100% 05/26/2023 9:00 AM EDT Inhaled Oxygen Concentration - - Weight 73.7 kg (162 lb 6.4 oz) 05/26/2023 9:00 A M EDT Height 157.5 cm (5' 2 ) 05/26/2023 9:00 AM EDT Body Mass Index 29.7 05/26/2023 9:00 AM EDT Plan of Treatment Health Maintenance Due Date Last Done Comments Hepatitis C Screening 1955 COVID-19 Vaccine (#1) 05/30/1959 Pneumococcal Vaccine (1 of 2 - PCV) 1960 Depression Screening 1966 Preventative Health Evaluation 1972 DTap / Tdap / Td (1 - Tdap) 1973 Shingrix-Zoster Vaccine (1 of 2) 1973 Colon Cancer Screening (Colonoscopy) 05/30/1999 Breast Cancer Screening (Mammogram) 2004 Fall Risk Assessment 05/30/2019 Osteoporosis Screening (DEXA Scan) 05/30/2019 Influenza Vaccine (#1) 2023 RSV Adult > 60+ Yrs or Pregn ant (1 - 1-dose 75+ series) 2029 Hepatitis B Vaccines Aged Out No long er eligible based on patient's age to complete this topic RSV Ped < 20 months Aged Out No longe r eligible based on patient's age to complete this topic Care Teams Electrophonic Engineer Relationship Specialty Start Date End Date Radha Aceves MD [address] [facility] [place] [id number] PCP - General Internal Medicine 05/02/20
--- OUTSIDE RECORDS SUMMARY | 2024-07-16 06:43 | XMS_ITS | Clinical Summary ---
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 Phone Radha Aceves MD Primary Care Provider [phone] Allergies No known active allergies Medications No known medications Active Problems Problem Noted Date Diagnosed Date Malignant neoplasm of upper- outer quadrant of female breast ([facility] V24, [facility] V28) 12/01/2023 Encounters Date Type Department Care Team Description 05/24/2024 9:31 AM EDT - 05/24/2024 11:59 PM EDT Hospital [facility] [address] [phone] Malignant neoplasm of upper-outer quadrant of female breast ([facility]/HCC V24, [facility] V28); Encounter for screening mammogram for malignant neoplasm of breast Discharge Disposition: Home or Self Care 05/24/2024 9:00 AM EDT Office Visit [facility] Hematology Oncology [address] [place] [phone] Shannan Joyce DO Malignant neoplasm of upper-outer quadrant of left breast in female, estrogen receptor positive (CMS/HCC V24, [facility] V28) (Primary Dx) from Last 3 Months Social History Tobacco Use Types Packs/Day Years Used Date Smoking Tobacco: Former Smokeless Tobacco: Never Alcohol Use Standard Drinks/Week Comments Yes 0 (1 standard drink = 0.6 oz pur e alcohol) Comments No Sex and Gender Information Value Date Recorded Sex Assigned at Not on file Legal Sex Female 5:49 PM EST Gender Identity Not on file Sexual Orientation Not on file Obstetrics History Para Term AB IAB SAB Ectopic Multiple Livin g Live Births 3 Last Filed Vital Signs Vital Sign Reading Time Taken Comments Blood Pressure 157/78 05/24/2024 9:03 AM EDT Pulse 71 05/24/2024 9:03 AM EDT Temperature 36.8 ??C (98.2 ??F) 05/24/2024 9:03 AM ED T Respiratory Rate - - Oxygen Saturation 100% 05/24/2024 9:03 AM EDT Inhaled Oxygen Concentration - - Weight 76.7 kg (169 lb) 05/24/2024 9:42 AM EDT Height 157.5 cm (5' 2 ) 05/24/2024 9:42 AM EDT Body Mass Index 30.91 05/24/2024 9:42 AM EDT Plan of Treatment Upcoming Encounters Date Type Department Care Team (Late st Contact Info) Description 05/30/2025 9:00 AM EDT Office Visit [facility] Hematology Oncology [address] [place] [phone] Shannan Joyce, [address] [place] [address] Health Maintenance Due Date Last Done Comments DTaP,Tdap,and Td Vaccines (1 - Tdap) 1973 Pneumococcal Vaccine: 50+ Years (1 of 2 - PCV) 1973 Zoster Vaccines (1 of 2) 1973 Depression Screening 02/22/2022 Falls Risk Assessment 02/22/2022 Hepatitis C Screening 02/22/2022 Medicare Annual Wellness Visit 02/22/2022 Social Influencers of Health Screening 02/22/2022 COVID-19 Vaccine ( season) 2023 01/10/2022, 03/06/2021, 07/06/2020, Additional history exists Influenza Vaccine (Season Ended) 2024 01/10/2022, 12/06/2020, 12/21/2019 Breast Cancer Screening 05/24/2026 05/25/19 25, 05/20/2023, 05/17/2022, Additional history exists Colorectal Cancer Screening: FIT-DNA (Cologuard) 01/11/2027 01/12/2024, 01/12/2024 Osteoporosis Screening (Bone Density Screening) 04/09/2028 04/09/2018 RSV Immunization Adult Patients (1 - 1-dose 75+ series) 2029 HIB Vaccines Aged Out No longer eligi ble based on patient's age to complete this topic HPV Vaccines Aged Out No longer eligi ble based on patient's age to complete this topic Hepatitis A Vaccines Aged Out No long er eligible based on patient's age to complete this topic Hepatitis B Vaccines Aged Out No long er eligible based on patient's age to complete this topic IPV Vaccines Aged Out No longer eligi ble based on patient's age to complete this topic MMR Vaccines Aged Out No longer eligi ble based on patient's age to complete this topic Meningococcal ACWY Vaccine Aged Out N o longer eligible based on patient's age to complete this topic Meningococcal B Vaccine Aged Out No l onger eligible based on patient's age to complete this topic RSV Immunization Patients Under 20 months Aged Out No longer eligible based on patient's age to complete this topic Varicella Vaccines Aged Out No longer eligible based on patient's age to complete this topic Procedures Procedure Name Priority Date/Time Associated Diagnosis Comments MG MAMMO DIGITAL SCREENING W KRISTOFER BILAT Routine 05/24/2024 9:59 AM EDT Malignant neoplasm of upper-outer quadrant of female breast (CMS/HCC V24, [facility] V28) Encounter for screening mammogram for malignant neoplasm of breast BERT DEXA AXIAL SKELETON Routine 04/09/2018 3:12 PM EST Encounter for screening for osteoporosis from Last 3 Months or Most Recently Relevant to Health Maintenance Results * MG Mammo Digital Screening w Kristofer bilat (05/24/2024 9:59 AM EDT) Anatomical Region Laterality Modality Breast Bilateral Mammography 05/24/2024 11:3 3 AM EDT Impressions 05/24/2024 11:50 AM EDT No mammographic evidence of new or recurrent malignancy. ?? No suspicious interval change. A negative mammogram in the presence of a clinically suspicious palpable abnormality does not preclude the possibility of malignancy or alter the indications for biopsy. ASSESSMENT: ?? BI-RADS 2: BENIGN RECOMMENDATION(S): 1: Routine screening mammogram BILATERAL in 1 year. [facility] [address], [id number] -------- FINAL REPORT -------- Dictated By: Nirav Berkowitz Dictated Date: 05/24/2024 11:33 ET Assigned Physician: Nirav Berkowitz Reviewed and Electronically Signed By: Nirav Berkowitz Signed Date: 05/24/2024 11:50 ET Workstation ID: [id number] Transcribed By: Self Edit Transcribed Date: 05/24/2024 11:38 ET Narrative 05/24/2024 11:50 AM EDT EXAM: ??SCREENING MAMMOGRAPHY, BILATERAL HISTORY: ??SCREENING. ??Personal history of left breast cancer diagnosed at age 56. ??Previous left lumpectomy and radiation. COMPARISON: ??05/20/2023, 05/17/2022, 05/14/2021, 05/10/2020 TECHNIQUE: Synthesized CC and MLO projections of each breast. ??Tomosynthesis of each breast in the CC and MLO projections. ADDITIONAL IMAGING: None Computer-aided detection was employed with the iCAD ??ProFound AI 3-D. TISSUE DENSITY: There are scattered areas of fibroglandular density. (BI-RADS category B) FINDINGS: RIGHT BREAST: No suspicious mass. No suspicious calcification. No distortion. ?? No additional suspicious right breast findings LEFT BREAST: There is stable architectural distortion in the upper outer left breast. ??There are surgical clips in the left axilla. There is no new suspicious left breast finding Procedure Note Nirav Berkowitz MD - 05/24/2024 EXAM: SCREENING MAMMOGRAPHY, BILATERAL HISTORY: SCREENING. Personal history of left breast cancer diagnosed atage 56. Previous left lumpectomy and radiation. COMPARISON: 05/20/2023, 05/17/2022, 05/14/2021, 05/10/2020 TECHNIQUE: Synthesized CC and MLO projections of each breast.Tomosynthesis of each breast in the CC and MLO projections. ADDITIONAL IMAGING: None Computer-aided detection was employed with the iCAD ProFound AI 3-D. TISSUE DENSITY: There are scattered areas of fibroglandular density.(BI-RADS category B) FINDINGS: RIGHT BREAST: No suspicious mass. No suspicious calcification. No distortion. Noadditional suspicious right breast findings LEFT BREAST: There is stable architectural distortion in the upper outer left breast.There are surgical clips in the left axilla. There is no new suspicious left breast finding IMPRESSION: No mammographic evidence of new or recurrent malignancy. No suspicious interval change. A negative mammogram in the presence of a clinically suspicious palpableabnormality does not preclude the possibility of malignancy or alter theindications for biopsy. ASSESSMENT: BI-RADS 2: BENIGN RECOMMENDATION(S): 1: Routine screening mammogram BILATERAL in 1 year. [facility] location: [facility] [address] [place], [address] -------- FINAL REPORT -------- Dictated By: Nirav Berkowitz Dictated Date: 05/24/2024 11:33 ET Assigned Physician: Nirav Berkowitz Reviewed and Electronically Signed By: Nirav Berkowitz Signed Date: 05/24/2024 11:50 ET Workstation ID: [id number] Transcribed By: Self Edit Transcribed Date: 05/24/2024 11:38 ET us Shannan Joyce DO IMG BI PROCEDURES Fin al Result * BERT DEXA AXIAL SKELETON (04/09/2018 3:12 PM EST) Anatomical Region Laterality Modality Mammography 04/09/2018 2:00 PM EST Narrative 04/09/2018 3:12 PM EST [facility] Diagnostic Imaging Department [address] [place] [address] Patient: ??LESLEE CHAPARRO ?/Age/Sex: 1955 - 62 - Unit#: ??[id number] ? Location/Status: ??SPDIMAM/REG CLI ? [facility] Ordering Physician: ??AKHIL LIMON MD [facility] Dexa Axial Skeleton - 04/09/18 - HISTORY: ??The patient is a 62-year-old postmenopausal female with clinical concern for metabolic bone disease. FINDINGS: ??Dual energy x-ray absorptiometry of the lumbar spine and femurs is performed. The mean bone mineral density at L1-L4 (with the exclusion of L2 and L3) is 1.405 gm/cm2 which is 121% of that of young normals and 134% of that of age matched controls. This yields a T-score of 2.0 and a Z-score of 2.9 and there is therefore no evidence of osteoporosis or osteopenia here. The mean bone mineral density of the femurs bilaterally is 1.239 gm/cm2 which is 123% of that of young normals and 135% of that of age matched controls. ??This yields a T-score of 1.8 and a Z-score of 2.6 and there is therefore no evidence of osteoporosis or osteopenia here. IMPRESSION: 1. There is no evidence of osteoporosis or osteopenia.. ??There has been a decrease of 2.8% in bone mineral density in the lumbar spine since the prior examination of 08/17/2015. ??There has been a decrease of 1.3% in bone mineral density in the right femur and an increase of 1.6% in bone mineral density in the left femur. 2. FRAX analysis yields a 10-year probability of major osteoporotic fracture of 8.8% and a 10-year probability of hip fracture of 0.1%. Code 57809 Dictating Physician: ??GONZALEZ RODRIGUEZ MD Electronically Signed by: ??GONZALEZ RODRIGUEZ MD Dic Date/Time: ??04/09/18 1511 Sign date/Time: ??04/09/18 1512 Procedure Note Gonzalez Rodriguez MD - 03/06/2022 [facility] Diagnostic Imaging Department [address] [place] [id number] Patient: LESLEE CHAPARRO /Age/Sex: 1955 - 62 - F Unit#: [id number] [facility] Ordering Physician: AKHIL LIMON MD Bert Dexa Axial Skeleton - 04/09/18 - HISTORY: The patient is a 62-year-old postmenopausal female withclinical concern for metabolic bone disease. FINDINGS: Dual energy x-ray absorptiometry of the lumbar spine and femursis performed. The mean bone mineral density at L1-L4 (with the exclusion ofL2 and L3) is 1.405 gm/cm2 which is 121% of that of young normals and 134% ofthat of age matched controls. This yields a T-score of 2.0 and a Z-score of 2.9and there is therefore no evidence of osteoporosis or osteopenia here. The mean bone mineral density of the femurs bilaterally is 1.239 gm/am9qqjhl is 123% of that of young normals and 135% of that of age matched controls.This yields a T-score of 1.8 and a Z-score of 2.6 and there is therefore noevidence of osteoporosis or osteopenia here. IMPRESSION: 1. There is no evidence of osteoporosis or osteopenia.. There has judith decrease of 2.8% in bone mineral density in the lumbar spine since theprior examination of 08/17/2015. There has been a decrease of 1.3% in bonemineral density in the right femur and an increase of 1.6% in bone mineral densityin the left femur. 2. FRAX analysis yields a 10-year probability of major osteoporoticfracture of 8.8% and a 10-year probability of hip fracture of 0.1%. 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
[2024-08-19 15:27] VITALS: BMI 31.6
--- NOTE | 2024-08-20 09:22 | HO.ANESPROP2 ---
Documented by User: Antoinette Irene NP 08/20/24 09:24 HPI - Anesthesia Eval Consult details Narrative: 69yo F for Colonoscopy DM managed with diet PMFSH Active Problems Active Problems: All Active Problems Encounter for routine gynecological examination (Acute) Menopausal state (Acute) Positive colorectal cancer screening using Cologuard test (Acute) Elevated blood pressure reading (Acute) Dizziness (Acute) Hyperkalemia (Acute) Diabetes mellitus type 2 in obese (Acute) Type 2 diabetes mellitus (Acute) Obesity due to excess calories (Acute) New onset type 2 diabetes mellitus (Acute) Ex-smoker (Acute) Thoracalgia (Acute) Screening for lung cancer (Acute) Diastolic blood pressure 90 mm Hg or higher (Acute) Encounter for general adult medical examination with abnormal findings (Acute) Pre-hypertension (Acute) Impaired fasting blood sugar (Acute) Lipid disorder (Acute) Past Medical History Medical History Lipid disorder Impaired fasting blood sugar Pre-hypertension Surgical History Surgical History Hx of colonoscopy History of tonsillectomy Hx of tubal ligation (1982) Hx of lumpectomy (01/2012) Social History Social History Housing: House Patient Tobacco Use Status: Former Tobacco user e-Cigarette/Vaping Use: Never Used Have you been hit, kicked, punched, or otherwise hurt by someone within the past year? If so, by whom?: No Are you DNR?: No Advance Directives: No Advance Directives Information Provided: Yes service: No Current occupational status: employed Cognitive needs: No Hearing needs: No Vision needs: Yes Meds Allergies Allergy/AdvReac Type Severity Reaction Status Date / Time No Known Allergies Allergy Verified 07/21/24 15:12 Exam Height,Weight and Vital Signs: Height 5 ft 2 in Weight 78.471 kg Assessment and Plan Assessment Anesthesia Assessment: Chart Reviewed Documented by User: Niurka Zuniga MD 08/23/24 07:42 PMFSH Past Medical History Medical History Lipid disorder Impaired fasting blood sugar Pre-hypertension Family History Family history of problems with anesthesia: No Surgical History Surgical History Hx of colonoscopy History of tonsillectomy Hx of tubal ligation (1982) Hx of lumpectomy (01/2012) History of Problems with Anesthesia: No Social History Social History Housing: House Patient Tobacco Use Status: Former Tobacco user e-Cigarette/Vaping Use: Never Used Have you been hit, kicked, punched, or otherwise hurt by someone within the past year? If so, by whom?: No Are you DNR?: No Advance Directives: No Advance Directives Information Provided: Yes service: No Current occupational status: employed Cognitive needs: No Hearing needs: No Vision needs: Yes Meds Allergies Allergy/AdvReac Type Severity Reaction Status Date / Time No Known Allergies Allergy Verified 07/21/24 15:12 Exam Airway Mallampati Class: II TM Dist: >3cm Neck ROM: Full Heart: rrr Lungs: cta Assessment and Plan Assessment Anesthesia Assessment: Anesthesia Plan Discussed Final Anesthetic Review Family History of Problems with Anesthesia: No History of Problems with Anesthesia: No NPO: Yes ASA Class: III Final Preanesthetic Review: No Changes in Pt Med Stat, Meds/Allgs Chart Reviewed, Consent Obtained/Reviewed and Anes Risks/Benef Reviewed Patient Risk: Intermediate Procedure Risk: Low Anesthetic Plan Anesthetic Plan: MAC: Disposition: Standard PACU
[2024-08-23 07:00] VITALS: BP 115/93; PULSE 87; RESP 18; TEMP 37.1; O2SAT 97; BMI 31.0
[2024-08-23] MEDS: Lactated Ringers 1,000 ML 100 ML IVCONT (07:19)
[2024-08-23 09:50] VITALS: BP 106/66; PULSE 60; RESP 16; TEMP 36.8; O2SAT 100
--- NOTE | 2024-08-23 09:57 | P.BOP_ITS ---
Brief Operative Note Date of Service: 08/23/24 Pre-op diagnosis: + Cologuard Post-op diagnosis: other (Diverticulosis) Procedure: Colonoscopy to the cecum Surgeon: Rogelio Parker MD Anesthesia: MAC Was an Delivery Driver/Customer Service used for this Procedure?: No Estimated blood loss (mL): 0 Pathology: none sent Condition: stable Disposition: PACU
[2024-08-23 10:05] VITALS: BP 112/77; PULSE 70; RESP 16; TEMP 36.8; O2SAT 98
--- NOTE | 2024-08-23 10:58 | OP_ITS ---
DATE OF SERVICE: 08/23/2024 SURGEON: Rogelio Parker MD INDICATIONS: The patient presents for evaluation of a positive Cologuard. Full consent has been obtained from her for this, including risks of bleeding and perforation. PREOPERATIVE DIAGNOSIS: Positive Cologuard. POSTOPERATIVE DIAGNOSIS: PROCEDURE PERFORMED: Colonoscopy to cecum. ESTIMATED BLOOD LOSS: COMPLICATIONS: ANESTHESIA: Monitored anesthesia care. ASSISTANTS: SPECIMENS: POSTOPERATIVE DIAGNOSES: Positive Cologuard, diverticulosis, and internal hemorrhoids. DESCRIPTION OF PROCEDURE: The patient was placed in the left lateral decubitus position. The digital rectal exam revealed no abnormalities. The Olympus video pediatric colonoscope was entered into the rectum and advanced easily to the cecum. Once in the cecum, I did identify normal-appearing cecal pouch with appendiceal orifice and a normal-appearing ileocecal valve. The entire cecum and ileocecal valve appeared normal. There was transillumination of light deep in the right lower quadrant. Scope was slowly withdrawn assessing all mucosal surfaces carefully. Preparation was excellent. I did not visualize any sign of polyps, colitis, nor angiodysplasia. There was a mild amount of sigmoid diverticulosis. In the rectum, scope was retroflexed visualizing internal hemorrhoids, but no other pathology. The rectal mucosa appeared normal. The scope was straightened and withdrawn from the patient. She tolerated the procedure well and was returned to recovery area in stable condition. IMPRESSION: 1. Diverticulosis. 2. Internal hemorrhoids. PLAN: Given today's negative exam, 2 negative previous colonoscopies, and no family history of colon cancer, I do not think she would need any further screening colonoscopies going forward given her age of 69. She will otherwise see me on a p.r.n. basis. MD DMITRY Ramires/MARY ANN / [phone]
== END 2024-08-23 10:44 | disposition home or self-care (01) ==
PROVIDERS: PCP Internal Medicine; Visit Provider Internal Medicine
PROC: 0DJD8ZZ Inspection of Lower Intestinal Tract, Via Natural or Artificial Opening Endoscopic (ICD-10-PCS; CPT 45378; principal; 2024-08-23 08:30)
DX: R19.5 Other fecal abnormalities (principal); K57.30 Diverticulosis of large intestine without perforation or abscess without bleeding; K64.8 Other hemorrhoids; R73.01 Impaired fasting glucose; E75.6 Lipid storage disorder, unspecified; Z85.3 Personal history of malignant neoplasm of breast; Z98.890 Other specified postprocedural states; Z87.891 Personal history of nicotine dependence
CPT/HCPCS: 45378; J2704

== ENCOUNTER 2024-10-25 08:26 | Outpatient (AMB) | payer MEDICARE, SELFPAY ==
--- NOTE | 2024-10-25 08:30 | MHC.OFFVIS ---
Intake Visit Reasons: 1 Year follow up Allergies No Known Allergies Allergy (Verified 07/21/24 15:12) HPI Comments Details: 69 yo woman with possible seizure disorder who reported two episodes of sudden onset of dizziness, described as lightheadedness like she was going to pass out feeling, triggered by turning head to the right or it seemed that way, lasting for a few minutes during which she sat down and was able to talk and comprehend. EEG revealed intermittent left hemiphereic slowing. He did not have anymore episodes or any new symptoms. [facility] Medical History (Updated 10/25/24 @ 08:38 by Kelsie Aceves MD) Partial seizure disorder Lipid disorder Impaired fasting blood sugar Pre-hypertension Surgical History Hx of colonoscopy History of tonsillectomy Hx of tubal ligation (1982) Hx of lumpectomy (01/2012) Social History Housing: House Patient Tobacco Use Status: Former Tobacco user e-Cigarette/Vaping Use: Never Used service: No Current occupational status: employed Cognitive needs: No Hearing needs: No Vision needs: Yes Review of Systems Const Details: No active symptoms. Physical Exam Neuro Other: Mental Status: Alert and oriented to person, place, and time. Normal attention. Normal spontaneous speech, fluency, and comprehension. No obvious issues with mood and memory. Affect is appropriate. Cranial Nerves: CN II: Visual mistry full to confrontation, visual acuity intact. CN III, IV, : Pupils equal, round, reactive to light and accommodation. Extraocular movements are normal. CN V: Facial sensation is normal. CN VII: Facial movements symmetrical. CN VIII: Hearing intact to bedside conversation is normal. CN IX, X: Palate elevates symmetrically. CN XI: Shoulder shrug and head turn symmetrical. CN XII: Tongue midline without atrophy or fasciculations. Extrapyramidal: Full facial expressions and blinking. No rigidity. Movements are appropriate with no tremor or abnormality. Speech: Normal; no dysarthria or tremor. Assessment & Plan Assessment & Plan (1) Dizziness: Comment: Routine EEG at [facility] in August 2023: Intermittent left temp/hemispheric slowing [place] [facility]: Minimal MVD. Code(s): R42 - Dizziness and giddiness Category: Medical Plan Impression recommendations: 69 years old woman with couple of episodes of dizziness with suspicion of seizure disorder. She was not having anymore episodes and with that information no further intervention was done. She was advised to be careful and take common sense precautions including with driving and avoid driving at night or in bad weather. Similarly, sleep deprivation and alcohol drinking can bring more symptoms and should be avoided. Her follow-up is on as needed basis Coding Level of Care Code Est Pt Level 3 (48828) Diagnoses Dizziness R42
--- OUTSIDE RECORDS SUMMARY | 2024-10-25 08:44 | XMS_ITS | Clinical Summary ---
Author Organization [facility] Address [address] [place] [address] Care Team Providers Care Sales Rep Name Role Phone Radha Aceves MD Primary Care Provider [phone] Allergies No known active allergies Medications No [...] 70 05/26/2023 9:00 AM EDT Temperature 36.7 C (98 F) 05/26/2023 9:00 AM EDT Respiratory Rate - [...] Screening (DEXA Scan) 05/30/2019 Influenza Vaccine (#1) 2024 RSV Adult > 60+ Yrs or Pregn ant (1 - 1-dose 75+ series) 2029 Hepatitis B Vaccines Aged Out No long er eligible based on patient's age to complete this topic RSV Ped < 20 months Aged Out No longe r eligible based on patient's age to complete this topic Care Teams Sales Rep Relationship Specialty Start Date End Date Radha Aceves MD [address] [facility] [place] [phone] PCP - General Internal Medicine 05/02/20
--- OUTSIDE RECORDS SUMMARY | 2024-10-25 08:44 | XMS_ITS | Clinical Summary ---
Author Organization [facility] Address [address] [place] [address] Phone Care Team Providers Care Lead Technical Architect Name Role Phone Radha Aceves MD Primary Care Provider [phone] Allergies No known active allergies Medications No known medications Active Problems Problem Noted Date Diagnosed Date Malignant neoplasm of upper- outer quadrant of female breast (CMS/HCC V24, CMS/HCC V28) 12/01/2023 Social History Tobacco Use Types Packs/Day Years [...] 70 05/24/2024 9:03 AM EDT Temperature 36.8 C (98.2 F) 05/24/2024 9:03 AM EDT Respiratory Rate - - Oxygen [...] Description 05/30/2025 9:00 AM EDT Office Visit [facility] Hematology Oncology [address] [place] [phone] Shannan Joyce, DO [address] [place] [address] Health Maintenance Due Date Last Done Comments DTaP,Tdap,and Td Vaccines (1 - Tdap) 1973 Pneumococcal Vaccine: 50+ Years (1 of 2 - PCV) 1973 Zoster Vaccines (1 of 2) 1973 Falls Risk Assessment 02/22/2022 Hepatitis C Screening 02/22/2022 Medicare Annual Wellness Visit 02/22/2022 Social Influencers of Health Screening 02/22/2022 COVID-19 Vaccine ( season) 2023 01/10/2022, 03/06/2021, 07/06/2020, Additional history exists Depression Screening 03/17/2024 Influenza Vaccine (#1) 2024 , 12/06/2020, 12/21/2019 Breast Cancer Screening 05/24/2026 05/25/19, 05/20/2023, 05/17/2022, Additional history exists Colorectal Cancer [...] of female breast ([facility] V24, [facility] V28) Encounter for screening mammogram for malignant [...] or alter the indications for biopsy. ASSESSMENT: BI-RADS 2: BENIGN RECOMMENDATION(S): 1: Routine screening mammogram BILATERAL in 1 year. [facility] [address], [address] -------- FINAL REPORT -------- Dictated By: Nirav Berkowitz Dictated Date: 05/24/2024 11:33 ET Assigned Physician: Nirav Berkowitz Reviewed and Electronically Signed By: Nirav Berkowitz Signed Date: 05/24/2024 11:50 ET Workstation ID: [id number] Transcribed By: Self Edit Transcribed Date: 05/24/2024 11:38 ET Narrative 05/24/2024 11:50 AM EDT EXAM: SCREENING MAMMOGRAPHY, BILATERAL HISTORY: SCREENING. Personal history of left breast cancer diagnosed at age 56. Previous left lumpectomy and radiation. COMPARISON: 05/20/2023, 05/17/2022, 05/14/2021, 05/10/2020 TECHNIQUE: Synthesized CC and MLO projections of each breast. Tomosynthesis of each breast in the CC and MLO projections. ADDITIONAL IMAGING: None Computer-aided detection was employed with the [employer] AI 3-D. TISSUE DENSITY: There are scattered areas of fibroglandular density. (BI-RADS category B) FINDINGS: RIGHT BREAST: No suspicious mass. No suspicious calcification. No distortion. No additional suspicious right breast findings LEFT BREAST: There is stable architectural distortion in the upper outer left breast. There are surgical clips in the left axilla. [...] None Computer-aided detection was employed with the [employer] AI 3-D. TISSUE DENSITY: There are scattered [...] year. [facility]amm[facility] location[facility] [address], [address] -------- FINAL REPORT -------- Dictated By: Nirav Berkowitz Dictated Date: 05/24/2024 11:33 ET Assigned Physician: Nirav Berkowitz Reviewed and Electronically Signed By: Nirav Berkowitz Signed Date: 05/24/2024 11:50 ET Workstation ID: [id number] Transcribed By: Self Edit Transcribed Date: 05/24/2024 11:38 ET us Shannan Joyce DO IMG BI PROCEDURES Fin al Result * [facility] DEXA AXIAL SKELETON (04/09/2018 3:12 PM EST) Anatomical Region Laterality Modality Mammography 04/09/2018 2:00 PM EST Narrative 04/09/2018 3:12 PM EST [facility] Diagnostic Imaging Department [address] [place] [address] Patient: ASHTYN CHAPARROTANNER Lopez./Age/Sex: 1955 - 62 - F Unit#: [id number] Location/Status: [facility] CLI Mnemonic[facility] Ordering Physician: HALINA LIMON MD [facility] Dexa Axial Skeleton - 04/09/18 - HISTORY: The patient is a 62-year-old postmenopausal female with clinical concern for metabolic bone disease. FINDINGS: Dual [...] 135% of that of age matched controls. This yields a T-score of 1.8 and a Z-score of 2.6 and there is therefore no evidence of osteoporosis or osteopenia here. IMPRESSION: 1. There is no evidence of osteoporosis or osteopenia.. There has been a decrease of 2.8% in bone mineral density in the lumbar spine since the prior examination of 08/17/2015. There has been a decrease of 1.3% in bone mineral density in the right femur and an increase of 1.6% in bone mineral density in the left femur. 2. FRAX analysis yields a 10-year probability of major osteoporotic fracture of 8.8% and a 10-year probability of hip fracture of 0.1%. Code 09536 Dictating Physician: GONZALEZ RODRIGUEZ MD Electronically Signed by: GONZALEZ RODRIGUEZ MD Dic Date/Time: 04/09/181510 Sign date/Time: 04/09/18 151 Procedure Note Gonzalez Rodriguez MD - 03/06/2022 [facility] Diagnostic Imaging Department [address] [place] [address] Patient: LESLEE CHAPARRO /Age/Sex: 1955 - 62 - F Unit#: [id number] Location/Status: [facility] CLI Mnemonic[facility] Ordering Physician: HALINA LIMON MD [facility] Dexa Axial Skeleton - [...] density of the femurs bilaterally is 1.239 gm/hs5hyyjl is 123% of that of young normals [...] probability of hip fracture of 0.1%. Code 64513 Dictating Physician: GONZALEZ RODRIGUEZ MD Electronically Signed by: GONZALEZ RODRIGUEZ MD Dic Date/Time: 04/09/18 1511 Sign date/Time: 04/09/18 1512 Halina Limon MD IMG BI PROCEDURES Final Result from Last 3 Months or Most Recently Relevant to Health Maintenance Insurance [employer] [place] Care Teams Lead Technical Architect Relationship Specialty Start Date End Date Radha Aceves MD [address] [place] [phone] PCP - General Internal Medicine 05/02/20
--- OUTSIDE RECORDS SUMMARY | 2024-10-25 08:44 | XMS_ITS | Patient Health Record ---
Author Organization [facility] Address [address] [place] [phone] Care Team Providers Care Hematology Oncology Consultant Name Role Phone Ketan MOSES, [facility] Primary Care Provider Rogelio Bay [phone] Allergies No Known Allergies Reason For Referral [...] 05/05/2024 Encounters Encounter Location Date Provider Diagnosis [facility] [address] [place] [id number] 08/23/2024 Rogelio Parker Colon cancer screeni ng Z12.11 ; Abnormal stools R19.5 ; Diverticulosis of large intestine without perforation or abscess without bleeding K57.30 and Other hemorrhoids K64.8 [facility] [address] [place] [phone] 05/05/2024 Rogelio Parker Positive colorectal cancer screening using Cologuard test R19.5 [facility] [address] [place] [phone] 04/09/2024 Rogelio Parker Assessments Encounter Date Diagnosis (ICD Code) Assessment Notes Treatment Notes Treatment Clinical Notes Section Notes 08/23/2024 Colon cancer screening (ICD-10 - Z12.11) 08/23/2024 Abnormal stools (ICD-10 - R19.5) 05/05/2024 Positive colorectal cancer screening using Cologuard test (ICD-10 - R19.5) Overall, Leslee appears quite well. She is not having any new or worrisome GI complaints. However, given her positive Cologuard test and her last colonoscopy being about 9 years ago, I did recommend a colonoscopy for further evaluation. We did review the rationale for this in regard to colorectal cancer prevention and/or early detection. Full consent has been obtained for this, including risks of bleeding and perforation. The procedure will be done with monitored anesthesia care. Leslee was comfortable with this plan. Thank you again for allowing me to participate in Leslee's care. I shall continue to keep you advised of her progress. 08/23/2024 Diverticulosis of large intestine without perforation or abscess without bleeding (ICD-10 - K57.30) 08/23/2024 Other hemorrhoids (ICD-10 - K64.8) Plan Of Treatment Future Test Test Name Order Date COLONOSCOPY 05/05/2024 Insurance Providers Payer Name Payer Address Payer Phone Subscriber Number Group Number Insured Name Patient Relationship to Insured Coverage Start Date Coverage End Date [facility] [address] [place] [address] [id number] LESLEE LEONG Self - patient is the insured Medical (General) History Medical History History ICD Code Breast cancer--left side-lumpectomy, XRT -2011 Denies [place],DM,CVA,Lung disease,renal dise ase Negative colonoscopy age 49 at [facility] and in [address] Haro at [facility] Surgical History Surgery Date(Month/Year) Tonsils 1962 BTL 1979 Lumpectomy, left breast 2011
== END 2024-10-25 08:55 | disposition home or self-care (01) ==
LOC: HO.HSM 08:27
PROVIDERS: PCP Internal Medicine; Referring Provider Internal Medicine; Visit Provider Psychiatry & Neurology Neurology
DX: R42 Dizziness and giddiness (principal)
CPT/HCPCS: 99213

== ENCOUNTER → 2024-10-25 08:26 | Outpatient (BNVA) | payer MEDICARE, SELFPAY | PROVIDERS: PCP Internal Medicine; Referring Provider Internal Medicine; Visit Provider Psychiatry & Neurology Neurology | DX: R42 Dizziness and giddiness (principal); R94.01 Abnormal electroencephalogram [EEG] | CPT/HCPCS: 99212 ==

== ENCOUNTER 2025-01-18 14:49 | Outpatient (AMB) | payer MEDICARE, SELFPAY ==
--- OUTSIDE RECORDS SUMMARY | 2024-04-09 08:40 | XMS_ITS ---
Author Organization [facility] Address [address] [place] [address] Care Team Providers Care Legal Consultant Name Role Phone Ketan MOSES, Radha Primary Care Provider Rogelio Bay [phone] REASON FOR VISIT Patient presents today for positive cologuard Encounters Encounter Location Date Provider Diagnosis [facility] [address] [facility] [place] [address] 04/09/2024 Rogelio Parker Plan Of Treatment No Information Progress Notes * JAYSON LEONGDOB: (69 yo F)Acc No.[id number]:04/09/2024 Progress Notes Patient: JAYSON TREVIZO Provider: Lizandro Parker MD :1955 A ge:68 Y S ex:Female Date:04/09/2024 Address:[address] [id number] Pcp:Radha Aceves MD Subjective: * Chief Complaints: * 1 . Patient presents today for positive cologuard. * Medical History: Objective: * Vitals: Assessment: Plan: * Treatment: * * The named appointment provid er may or may not be the originator of this progress note, and it is not deemed complete until electronically signed by the appointment provider. Sign off status: Pending * Provider: Lizandro Parker MD Date: 0 04/09/2024 Generated for Printi ng/Famelag/eTransmitting on: 03/20/2024 05:54 PM EST
--- OUTSIDE RECORDS SUMMARY | 2024-08-23 03:30 | XMS_ITS ---
Author Organization [facility] Address [address] [place] [phone] Care Team Providers Care Track Superintendent Name Role Phone Ketan MOSES, [facility] Primary Care Provider Rogelio Bay [phone] REASON FOR VISIT screening Encounters Encounter Location Date Provider Diagnosis [facility] [address] [place] [phone] 08/23/2024 Rogelio Parker Colon cancer scree pepper Z12.11 ; Abnormal stools R19.5 ; Diverticulosis of large intestine without perforation or abscess without bleeding K57.30 and Other hemorrhoids K64.8 Assessments Encounter Date Diagnosis (ICD Code) Assessment Notes Treatment Notes Treatment Clinical Notes Section Notes 08/23/2024 Colon cancer screening (ICD-10 - Z12.11) 08/23/2024 Abnormal stools (ICD-10 - R19.5) 08/23/2024 Diverticulosis of large intestine without perforation or abscess without bleeding (ICD-10 - K57.30) 08/23/2024 Other hemorrhoids (ICD-10 - K64.8) Plan Of Treatment No Information Progress Notes * JAYSON LEONGDOB: (69 yo F)Acc No.[id number]:08/23/2024 COLON WITH MAC Patient: JAYSON TREVIZO LYNDA Provider: Lizandro Parker MD :1955 A ge:69 Y S ex:Female Date:08/23/2024 Address:[address], [phone] Pcp:Radha Aceves MD Subjective: * Chief Complaints: * 1 . Screening. * Medical History: Objective: * Vitals: Assessment: * Assessment: 1. C olon cancer screening - Z12.11 (Primary) 2 . A bnormal stools - R19.5? 3. D iverticulosis of large intestine without perforation or abscess without bleeding - K57.30 4 . O ther hemorrhoids - K64.8 Plan: * Treatment: * Procedure Codes: 4 5378 DIAGNOSTIC COLONOSCOPY, Modifiers: 33 * * The named appointment provid er may or may not be the originator of this progress note, and it is not deemed complete until electronically signed by the appointment provider. Sign off status: Pending * Provider: Lizandro Parker MD Date: 0 08/23/2024 Generated for Lexi nesbitt/Zackary/Surjititting on: 1 03/20/2024 05:54 PM EST
--- NOTE | 2025-01-18 14:52 | A.OFFPC_ITS ---
Vital Signs 01/18/25 14:53 Height 5 ft 2 in Weight 174 lb BMI 31.8 BP 118/70 Blood Pressure Location Lt brachial Position Sitting Pulse 66 Pulse Source Pulse Oximeter Pulse Oximetry (%) 98 Intake Visit Reasons: 6 month Allergies No Known Allergies Allergy (Verified 01/18/25 14:53) Medication List - Last Reconciled 01/18/25 by Radha Aceves MD cholecalciferol (vitamin D3) 25 mcg PO DAILY 90 days losartan 25 mg PO DAILY Tobacco use date assessed: 07/21/24 Fall risk assessment: No Falls in past year Last assessed Fall Risk: 01/18/25 Dental Screening Dental Screen Date: 07/21/24 HPI 6 month HPI Details History of Present Illness The patient is a 69-year-old female presenting for a 6-month follow-up for chronic condition management. Type 2 Diabetes Mellitus: - The patient has controlled diabetes. - Her hemoglobin A1c was 6.6 in April of this year, which was an increase from 6.3 in November of the previous year. Hyperlipidemia: - Lab results from April this year showed an LDL of 176. - The patient expressed that she does no t want to take medication for her high cholesterol. Health Maintenance: - The patient is a former smoker who tomasz t 29 years ago. Medical History: - Type 2 diabetes mellitus - Hyperlipidemia Diagnostic Results: - Vitals: Blood pressure 180/70 mmHg, pu lse 66 bpm. - Labs (April this year): Metaboli c profile showed normal kidney function, hemoglobin A1c was 6.6, liver enzymes were normal, and LDL was 176. - Labs (November last year): CBC was within normal limits, and hemoglobin A1c was 6.3. Problem List - Type 2 diabetes mellitus - Hyperlipidemia - History of tobacco use - Preventative care: Health maintenance follow-up and vaccination discussion. - Obesity with BMI 31.8 Plan - For hyperlipidemia, the patient will a ttempt a strict diet for 6 weeks. - Explained the risks of high cholestero l, including microvascular brain disease. - Advised to avoid fried foods, creamy s auces, cheese, and ice cream. - A fasting lab panel is to be completed in 6 weeks to re-evaluate cholesterol and hemoglobin A1c levels on strick diet - Recommended to schedule follow-up appo intments every 4 months instead of every 6 months. - The patient declined a flu vaccine. - The patient will monitor her lab resul ts online and will be contacted if there is a progression of her cholesterol in spite of diet. Review of Systems - General: No fever no chills - Neurological: No headaches no dizziness - Ear nose throat: No sore throat no hearing difficulty no ear pain - Cardiovascular: No syncope, no chest pain, no palpitations - Gastrointestinal: No nausea vomiting or diarrhea - Endocrine: No polyuria polydipsia no heat intolerance - Genitourinary: No dysuria , no blood in urine Physical Exam - General: No acute distress - HEENT: No acute findings - Neck: Supple - Respiratory system: Able to talk in f ull sentences, no audible wheeze - Cardiovascular: S1-S2 regular in rate and rhythm - Gastrointestinal: No pain - Extremities: No new findings - OUTPATIENT CASE MANAGER: Alert awake oriented x3 motor in tact - Skin: Normal turgor PFSH Medical History Partial seizure disorder Lipid disorder Impaired fasting blood sugar Pre-hypertension Surgical History Hx of colonoscopy History of tonsillectomy Hx of tubal ligation (1982) Hx of lumpectomy (01/2012) Social History Housing: House Patient Tobacco Use Status: Former Tobacco user e-Cigarette/Vaping Use: Never Used service: No Current occupational status: employed Cognitive needs: No Hearing needs: No Vision needs: Yes Questionnaire PHQ-9 Over the last 2 weeks, how often have you been bothered by any of the following problems? 1. Little interest or pleasure in doing things: not at all 2. Feeling down, depressed, or hopeless: not at all 3. Trouble falling or staying asleep, or sleeping too much: not at all 4. Feeling tired or having little energy: not at all 5. Poor appetite or overeating: not at all 6. Feeling bad about yourself - or that you are a failure or have let yourself or your family down: not at all 7. Trouble concentrating on things, such as reading the newspaper or watching television: not at all 8. Moving or speaking so slowly that other people could have noticed. Or the opposite - being so fidgety or restless that you have been moving around a lot more than usual: not at all 9. Thoughts that you would be better off or of hurting yourself in some way: not at all Total score: 0 Depression Screening Interpretation: Negative Depression Screening Done: Yes 98866 - PHQ-9 Billing: Yes Source: Developed by Drs. Rogelio Orellana, Dulce Christie, Juan Mccullough and colleagues, with an educational shaji from [employer]. Thrive Questionnaire Date Thrive assessed: 07/14/24 I am a: Patient What is your living situation today?: I have a steady place to live Within the past 12 months, did the food you bought not last and you didn't have the money to get more?: Never true Within the past 12 months, did you worry whether your food would run out before you got money to buy more?: Never true Do you have trouble paying for medicines?: No Do you have trouble getting transportation to medical appointments?: No Do you have trouble paying your heating and electricity bill?: No Do you have trouble taking care of your child, family member or friend?: No Do you have trouble with day-to-day activities such as bathing, preparing meals, shopping, managing finances, etc.?: No Are you currently unemployed and looking for a job?: No Are you interested in more education?: No Please select the resources that you would like help with: None Currently or been in a relationship where the following occur: No concerns reported THRIVE Score: 0 AUDIT C Alcohol Use Questionnaire (AUDIT-C) 1. How often do you have a drink containing alcohol?: Monthly or less 2. How many drinks containing alcohol do you have on a typical day when you are drinking?: 1 or 2 3. How often do you have six or more drinks on one occasion?: Never Total Score: 1 CHAYO-7 AMB Questionnaire CHAYO-7 Date CHAYO - 7 assessed: 07/21/24 Source: Developed by Drs. Rogelio Orellana, Juan Franks and colleagues, with an educational shaji from [employer]. Physical exam (Primary Care) Vital Signs: Last Vital Signs Pulse 66 01/18/25 14:53 BP 118/70 01/18/25 14:53 Pulse Ox 98 01/18/25 14:53 BMI result Body Mass Index 31.8 Tobacco/Smoking Status: Tobacco use Status Tobacco use date assessed 07/21/24 01/18/25 14:53 Patient Tobacco Use Status Former Tobacco user 01/18/25 14:53 e-Cigarette/Vaping Use Never Used 01/18/25 14:53 PHQ-9: PHQ-9 Score PHQ-9: Total score 0 01/18/25 14:53 Depression Screening Interpretation: Negative Thrive Assessment: Date of Thrive Assessment Date Thrive assessed 07/14/24 01/18/25 14:53 Currently or been in a relationship where the following occur: No concerns reported Coding Level of Care Code Est Pt Level 3 (84765) Complex EM visit Add On G2211 Diagnoses Diabetes mellitus type 2 in obese E11.69; E66.9 Lipid disorder E78.9 Class 1 obesity due to excess calories with serious comorbidity and body mass index (BMI) of 30.0 to 30.9 in adult E66.09; Z68.30 Obesity classification: adult class 1 (BMI 30 - 34.9) Serious obesity comorbidity presence: with serious comorbidity Body mass index: BMI 30.0-30.9 Additional Codes PHQ-9 - 94914 - PHQ-9 Billing: Yes ([id number]) Assessment & Plan Assessment & Plan (1) Diabetes mellitus type 2 in obese: Code(s): E11.69 - Type 2 diabetes mellitus with other specified complication; E66.9 - Obesity, unspecified Category: Medical (2) Lipid disorder: Code(s): E78.9 - Disorder of lipoprotein metabolism, unspecified Category: Medical (3) Obesity due to excess calories: Code(s): E66.09 - Other obesity due to excess calories Category: Medical Qualifiers: Obesity classification: adult class 1 (BMI 30 - 34.9) Serious obesity comorbidity presence: with serious comorbidity Body mass index: BMI 30.0-30.9 Qualified Code(s): E66.09 - Other obesity due to excess calories; Z68.30 - Body mass index [BMI] 30.0-30.9, adult Plan Type 2 Diabetes Mellitus: - The patient has controlled diabetes. - Her hemoglobin A1c was 6.6 in April of this year, which was an increase from 6.3 in November of the previous year. Hyperlipidemia: - Lab results from April of this year showed an LDL of 176. - The patient expressed that she does not want to take medication for her high cholesterol. Health Maintenance: - The patient is a former smoker who quit 29 years ago. Medical History: - Type 2 diabetes mellitus - Hyperlipidemia Diagnostic Results: - Vitals: Blood pressure 180/70 mmHg, pulse 66 bpm. - Labs (April this year): Metabolic profile showed normal kidney function, hemoglobin A1c was 6.6, liver enzymes were normal, and LDL was 176. - Labs (November last year): CBC was within normal limits, and hemoglobin A1c was 6.3. Problem List - Type 2 diabetes mellitus - Hyperlipidemia - History of tobacco use - Preventative care: Health maintenance follow-up and vaccination discussion. - Obesity with BMI 31.8 Plan - For hyperlipidemia, the patient will attempt a strict diet for 6 weeks. - Explained the risks of high cholesterol, including microvascular brain disease. - Advised to avoid fried foods, creamy sauces, cheese, and ice cream. - A fasting lab panel is to be completed in 6 weeks to re-evaluate cholesterol and hemoglobin A1c levels on strick diet - Recommended to schedule follow-up appointments every 4 months instead of every 6 months. - The patient declined a flu vaccine. - The patient will monitor her lab results online and will be contacted if there is a progression of her cholesterol in spite of diet.
[2025-01-18 14:53] VITALS: BP 118/70; PULSE 66; O2SAT 98; BMI 31.8
--- OUTSIDE RECORDS SUMMARY | 2025-01-18 17:54 | XMS_ITS | Patient Health Record ---
Author Organization [facility] Address [address] [place] [phone] Care Team Providers Care Cheese Supervisor Name Role Phone Ketan MOSES, [facility] Primary Care Provider Rogelio Bay [phone] Allergies No Known Allergies Reason For Referral No Information Immunizations Vaccine Route Administration Date Status Comme nts Influenza Unknown 05/05/2024 Refused Problems Problem Type SNOMED Code ICD Code Onset Dates Problem Status W/U Status Risk Notes Problem Abnormal feces ([id number]) Positive colorectal cancer screening using Cologuard test (R19.5) Active confirmed Vital Signs Temperature 98.6 degrees Fahrenheit 05/05/2024 Blood pressure diastolic 01 mm Hg 05/05/2024 Height 62 in 05/05/2024 Blood pressure systolic 001 mm Hg 05/05/2024 Weight 165 lbs 05/05/2024 BMI 30.18 kg/m2 05/05/2024 Encounters Encounter Location Date Provider Diagnosis [facility] [address] [place] [id number] 08/23/2024 Rogelio Parker Colon cancer screeni ng Z12.11 ; Abnormal stools R19.5 ; Diverticulosis of large intestine without perforation or abscess without bleeding K57.30 and Other hemorrhoids K64.8 [facility] [address] [place] [phone] 05/05/2024 Rogelio Parker Positive colorectal cancer screening using Cologuard test R19.5 [facility] [address] [place] [phone] 04/09/2024 Rogelio Parker Assessments Encounter Date Diagnosis [...] Insured Coverage Start Date Coverage End Date [facility] [address] [place] [address] [phone] [id number] LESLEE LEONG Self - patient is the insured Medical (General) History Medical History History ICD Code Breast cancer--left side-lumpectomy, XRT -2011 Denies [place],DM,CVA,Lung disease,renal dise ase Negative colonoscopy age 49 at [facility] and in [address] Haro at [facility] Surgical History Surgery Date(Month/Year) Tonsils 1962 BTL 1979 Lumpectomy, left breast 2011
--- OUTSIDE RECORDS SUMMARY | 2025-01-18 17:54 | XMS_ITS | Clinical Summary ---
Author Organization [facility] Address [address] [place] [address] Phone Care Team Providers Care Special Forces Engineer Sergeant Name Role Phone Radha Aceves MD Primary Care Provider [phone] Allergies No known active allergies Medications No [...] Description 05/30/2025 9:00 AM EDT Office Visit [facility] Hematology Oncology [address] [place] [phone] Maria Del Carmen Shannan Teodora, DO [address] [place] [address] Health Maintenance Due Date Last Done Comments DTaP,Tdap,and Td Vaccines (1 - Tdap) 1973 Pneumococcal Vaccine: 50+ Years (1 of 2 - PCV) 1973 Zoster Vaccines (1 of 2) 1973 Falls Risk Assessment 02/22/2022 Hepatitis C Screening 02/22/2022 Medicare Annual Wellness Visit 02/22/2022 Social Influencers of Health Screening 02/22/2022 Depression Screening 03/17/2024 COVID-19 Vaccine ( season) 2024 01/10/2022, 03/06/2021, 07/06/2020, Additional history exists Influenza Vaccine (#1) 2024 , 12/06/2020, 12/21/2019 Breast Cancer Screening 05/24/2026 05/25/19 25, 05/20/2023, 05/17/2022, Additional history exists Colorectal Cancer Screening: FIT-DNA (Cologuard) 01/11/2027 01/12/2024, 01/12/2024 Osteoporosis Screening (Bone Density Screening) 04/09/2028 04/09/2018 RSV Immunization Adult Patients (1 - 1-dose 75+ series) 2029 Colorectal Cancer Screening: Colonoscopy Discontinued 08/23/2024 HIB Vaccines Aged Out No longer eligi [...] neoplasm of upper-outer quadrant of female breast ([facility] V24, [facility] V28) Encounter for screening mammogram for [...] year. [facility] [address], [address] -------- FINAL REPORT -------- Dictated By: Nirav Berkowitz Dictated Date: 05/24/2024 11:33 ET Assigned Physician: Nirav Berkowitz Reviewed and Electronically Signed By: Nirav Berkowitz Signed Date: 05/24/2024 11:50 ET Workstation ID: [id number] Transcribed By: Self Edit Transcribed Date: 05/24/2024 [...] None Computer-aided detection was employed with the [employer] AI 3-D. TISSUE DENSITY: There are scattered [...] None Computer-aided detection was employed with the [employer] AI 3-D. TISSUE DENSITY: There are scattered [...] year. Mammography location: [facility] [address], [address] -------- FINAL REPORT -------- Dictated By: Nirav Berkowitz Dictated Date: 05/24/2024 11:33 ET Assigned Physician: Nirav Berkowitz Reviewed and Electronically Signed By: Nirav Berkowitz Signed Date: 05/24/2024 11:50 ET Workstation ID: [id number] Transcribed By: Self Edit Transcribed Date: 05/24/2024 11:38 ET us Shannan Joyce DO IMG BI PROCEDURES Fin al Result * BERT DEXA AXIAL SKELETON (04/09/2018 3:12 PM EST) Anatomical Region Laterality Modality Mammography 04/09/2018 2:00 PM EST Narrative 04/09/2018 3:12 PM EST [facility] Diagnostic Imaging Department [address] [place] [address] Patient: RANDELLCHRISTINALESLEE./Age/Sex: 1955 - 62 - F Unit#: [id number] Location/Status: [facility] Mnemonic[facility] Ordering Physician: HALINA LIMON MD [facility] Dexa Axial Skeleton - 04/09/18 [...] probability of hip fracture of 0.1%. Code 71807 Dictating Physician: GONZALEZ RODRIGUEZ MD Electronically Signed by: GONZALEZ RODRIGUEZ MD Dic Date/Time: 04/09/181510 Sign date/Time: 04/09/18 151 Procedure Note Gonzalez Rodriguez MD - 03/06/2022 [facility] Diagnostic Imaging Department [address] [place] [address] Patient: ASHTYN CHAPARROTANNER Lopez./Age/Sex: 1955 - 62 - F Unit#: [id number] [facility]onic[facility] Ordering Physician: HALINA LIMON MD Bert Dexa [...] density of the femurs bilaterally is 1.239 gm/ej6asrwl is 123% of that of young normals [...] probability of hip fracture of 0.1%. Code 24820 Dictating Physician: GONZALEZ RODRIGUEZ MD Electronically Signed by: GONZALEZ RODRIGUEZ MD Dic Date/Time: 04/09/18 1511 Sign date/Time: 04/09/18 1512 Halina Limon MD IMG BI PROCEDURES Final Result from Last 3 Months or Most Recently Relevant to Health Maintenance Insurance [employer] - [place] MEDICARE ADVANTAGE Care Teams Special Forces Engineer Sergeant Relationship Specialty Start Date End Date Radha Aceves MD [address] [place] [address] PCP - General Internal Medicine 05/02/20
--- OUTSIDE RECORDS SUMMARY | 2025-01-18 17:54 | XMS_ITS | Clinical Summary ---
Author Organization [facility] Address [address] [place] [address] Care Team Providers Care Decorating Machine Tender Name Role Phone Radha Aceves MD Primary Care Provider [phone] Allergies No known active allergies Medications No [...] age to complete this topic Care Teams Decorating Machine Tender Relationship Specialty Start Date End Date Radha Aceves MD [address] [facility] [place] [phone] PCP - General Internal Medicine 05/02/20
== END 2025-01-18 15:13 | disposition home or self-care (01) ==
LOC: HO.HMCC 14:50
PROVIDERS: PCP Internal Medicine; Visit Provider Internal Medicine
DX: E11.69 Type 2 diabetes mellitus with other specified complication (principal); E66.9 Obesity, unspecified; E78.9 Disorder of lipoprotein metabolism, unspecified; E66.09 Other obesity due to excess calories; Z68.30 Body mass index [BMI] 30.0-30.9, adult

== ENCOUNTER → 2025-01-18 14:49 | Outpatient (BNVA) | payer MEDICARE, SELFPAY | PROVIDERS: PCP Internal Medicine; Visit Provider Internal Medicine | DX: E11.69 Type 2 diabetes mellitus with other specified complication (principal); E78.5 Hyperlipidemia, unspecified; E66.09 Other obesity due to excess calories; E66.811 Obesity, class 1; Z68.30 Body mass index [BMI] 30.0-30.9, adult | CPT/HCPCS: 96127; 99212 ==

== ENCOUNTER 2025-02-19 06:31 | Outpatient (REF) | payer MEDICARE, SELFPAY ==
--- OUTSIDE RECORDS SUMMARY | 2025-02-19 06:34 | XMS_ITS | Clinical Summary ---
Author Organization [facility] Prior to 08/14/[address] [place] [address] Care Team Providers Care Auto Hauler Name Role Phone Radha Aceves MD Primary Care Provider [phone] Allergies No known active allergies Medications No [...] age to complete this topic Care Teams Auto Hauler Relationship Specialty Start Date End Date Radha Aceves MD [address] [facility] [place] [address] PCP - General Internal Medicine 05/02/20
--- OUTSIDE RECORDS SUMMARY | 2025-02-19 06:34 | XMS_ITS | Clinical Summary ---
Author Organization [facility] Address [address] [place] [address] Phone Care Team Providers Care Pedicurist Name Role Phone Radha Acvees MD Primary Care Provider [phone] Allergies No known active allergies Medications No [...] Description 05/30/2025 9:00 AM EDT Office Visit [facility] Hematology Oncology [address] [place] [phone] Maria Del Carmen Shannan Teodora, DO [address] [place] [address] Health Maintenance Due Date Last Done Comments [...] neoplasm of upper-outer quadrant of female breast ([facility] V24, [facility] V28) Encounter for screening mammogram for malignant [...] year. [facility] [address], [address] -------- FINAL REPORT -------- Dictated By: Nirav Berkowitz Dictated Date: 05/24/2024 11:33 ET Assigned Physician: Nirav Berkowitz Reviewed and Electronically Signed By: Nirav Berkowitz Signed Date: 05/24/2024 11:50 ET Workstation ID: [id number] Transcribed By: Self Edit Transcribed Date: 05/24/2024 [...] None Computer-aided detection was employed with the [employer] AI 3-D. TISSUE DENSITY: There are scattered areas of fibroglandular density. (BI-RADS category B) FINDINGS: RIGHT BREAST: No suspicious mass. No suspicious calcification. No distortion. No additional suspicious right breast findings LEFT BREAST: There is stable architectural distortion in the upper outer left breast. There are surgical clips in the left axilla. There is no new suspicious left breast finding Procedure Note iNrav Berkowitz MD - 05/24/2024 EXAM: SCREENING MAMMOGRAPHY, BILATERAL HISTORY: SCREENING. Personal history of left breast cancer diagnosed atage 56. Previous left lumpectomy and radiation. COMPARISON: 05/20/2023, 05/17/2022, 05/14/2021, 05/10/2020 TECHNIQUE: Synthesized CC and MLO projections of each breast.Tomosynthesis of each breast in the CC and MLO projections. ADDITIONAL IMAGING: None Computer-aided detection was employed with the [employer] AI 3-D. TISSUE DENSITY: There are scattered [...] year. [facility]amm[facility] [address], [address] -------- FINAL REPORT -------- Dictated By: Nirav Berkowitz Dictated Date: 05/24/2024 11:33 ET Assigned Physician: Nirav Berkowitz Reviewed and Electronically Signed By: Nirav Berkowitz Signed Date: 05/24/2024 11:50 ET Workstation ID: [id number] Transcribed By: Self Edit Transcribed Date: 05/24/2024 11:38 ET us Shannan Joyce DO IMG BI PROCEDURES Fin al Result * BERT DEXA AXIAL SKELETON (04/09/2018 3:12 PM EST) Anatomical Region Laterality Modality Mammography 04/09/2018 2:00 PM EST Narrative 04/09/2018 3:12 PM EST [facility] Diagnostic Imaging Department [address] [place] [address] Patient: RANDELLCHRISTINALESLEE./Age/Sex: 1955 - 62 - F Unit#: [id number] Location/Status: [facility] Mnemonic[facility] Ordering Physician: HALINA LIMON MD [facility] Dexa Axial Skeleton - 04/09/18 - [...] probability of hip fracture of 0.1%. Code 91361 Dictating Physician: GONZALEZ RDORIGUEZ MD Electronically Signed by: GONZALEZ RODRIGUEZ MD Dic Date/Time: 04/09/181510 Sign date/Time: 04/09/18 151 Procedure Note Gonzalez Rodriguez MD - 03/06/2022 [facility] Diagnostic Imaging Department [address] [place] [address] Patient: ASHTYN CHAPARROTANNER Lopez./Age/Sex: 1955 - 62 - F Unit#: [id number] [facility] Ordering Physician: HALINA LIMON MD Bert Dexa [...] density of the femurs bilaterally is 1.239 gm/kf1xoimj is 123% of that of young normals [...] probability of hip fracture of 0.1%. Code 57048 Dictating Physician: GONZALEZ RODRIGUEZ MD Electronically Signed by: GONZALEZ RODRIGUEZ MD Dic Date/Time: 04/09/18 1511 Sign date/Time: 04/09/18 1512 Halina Limon MD IMG BI PROCEDURES Final Result from Last 3 Months or Most Recently Relevant to Health Maintenance Insurance [employer] [place]ANTAGE Care Teams Pedicurist Relationship Specialty Start Date End Date Radha Aceves MD [address] [place] [phone] PCP - General Internal Medicine 05/02/20
[2025-02-19 11:15] LABS: MANUAL DIFF FLAG NO
[2025-02-19 11:21] LABS: Hematocrit 43.8 % (37.0-47.0); Hemoglobin 14.3 g/dl (12.0-16.0); Imm Gran Abs Auto 0.03 X10*3/uL (0.00-0.03); Imm Gran Pct Auto 0.5 % (0.0-0.4); Lymphocytes Absolute Auto 2.0 X10*3/uL (1.2-4.9); Mean Corpuscular HGB Conc 32.6 g/dl (31.0-35.0); Mean Corpuscular Hemoglobin 30.6 pg (27.0-33.0); Mean Corpuscular Volume 93.8 fL (80.0-98.0); NRBC Abs Auto 0.000 X10*3/uL (0.0-0.012); NRBC Pct Auto 0.0 /100WBC (0.0-0.2); Platelet Count 289 X10*3/uL (160-400); Red Blood Count 4.67 X10*6/uL (4.20-5.50); White Blood Count 6.4 X10*3/uL (4.8-10.8)
[2025-02-19 12:03] LABS: Alanine Aminotransferase 27 U/L (0-31); Albumin Level 4.6 g/dL (3.5-5.0); Alkaline Phosphatase 63 U/L (39-117); Anion Gap 12 (12-20); Aspartate Amino Transferase 30 U/L (5-31); Blood Urea Nitrogen 15 mg/dL (9-16); Calcium 9.6 mg/dL (8.4-10.2); Carbon Dioxide 28 mmol/L (22-29); Chloride 102 mmol/L (96-108); Cholesterol 264 mg/dL (<200); Estimated Glomerular Filt Rate > 60; HDL Cholesterol 80 mg/dL (>40); Potassium 4.5 mmol/L (3.3-5.1); Sodium 137 mmol/L (135-145); Total Protein 7.7 g/dL (6.5-8.0); Triglycerides 79 mg/dL (<150)
[2025-02-19 12:27] LABS: Vitamin B12 510 pg/mL (200-900)
== END 2025-02-19 06:32 | disposition home or self-care (01) ==
LOC: HO.HMGCLDS 06:31
PROVIDERS: PCP Internal Medicine; Visit Provider Internal Medicine
DX: N95.1 Menopausal and female climacteric states (principal); E11.69 Type 2 diabetes mellitus with other specified complication; E78.9 Disorder of lipoprotein metabolism, unspecified; R03.0 Elevated blood-pressure reading, without diagnosis of hypertension; E66.09 Other obesity due to excess calories; Z68.30 Body mass index [BMI] 30.0-30.9, adult
CPT/HCPCS: 36415; 80053; 80061; 82043; 82306; 82570; 82607; 83036; 84443; 85025